=== PATIENT | male | born 1940 | race Caucasian/White ===

== ENCOUNTER 2020-12-17 23:55 | Inpatient (IN) | payer MEDICARE, OTHER ==
[~2020-12-17] VITALS: Ht 175.3 cm; Wt 74.4 kg
[2020-12-18] MEDS ORDERED: IV NORMAL SALINE 1000 ML BAG IV ONE (00:15)
[2020-12-18] MEDS ORDERED: CLOP75TA15 PO (00:18)
[2020-12-18] MEDS ORDERED: BISA5TAB10 PO (00:18)
[2020-12-18] MEDS ORDERED: CETI-90 PO (00:18)
[2020-12-18] MEDS ORDERED: OMEP20CA15 PO (00:18)
[2020-12-18] MEDS ORDERED: GABA-532 PO (00:18)
[2020-12-18] MEDS ORDERED: ASPI81TA31 PO (00:18)
[2020-12-18] MEDS ORDERED: SENN-261 PO (00:18)
[2020-12-18] MEDS ORDERED: vitamin d3 PO (00:18)
[2020-12-18 00:52] LABS: BASOPHILS % (AUTO) 0.3 % (0.0-2.0); EOSINOPHILS # (AUTO) 0.3 K/uL (0.0-0.7); HEMATOCRIT 39.9 % (36.7-47.1); HEMOGLOBIN 13.7 g/dL (12.5-16.3); LYMPHOCYTES # (AUTO) 1.5 K/uL (20.0-40.0); LYMPHOCYTES % (AUTO) 10.4 % (20.5-51.5); MEAN CORPUSCULAR HGB CONC 34 g/dL (32.5-36.3); MEAN CORPUSCULAR VOLUME 87.8 fL (73.0-96.2); MONOCYTES # (AUTO) 1.4 K/uL (2.0-10.0); MONOCYTES % (AUTO) 9.8 % (0.0-11.0); NEUTROPHILS # (AUTO) 11.2 K/uL (1.8-8.9); NEUTROPHILS % (AUTO) 77.5 % (38.5-71.5); PLATELET COUNT (AUTO) 252 K/uL (152-348); RED BLOOD CELL COUNT(AUTO) 4.55 MIL/uL (4.06-5.63); WHITE BLOOD COUNT (AUTO) 14.4 K/uL (3.6-10.2)
[2020-12-18 00:55] LABS: CARBON DIOXIDE 21 mmol/L (21-32); CHLORIDE 99 mmol/L (98-107); CREATININE 1.9 mg/dL (0.6-1.3); POTASSIUM 4.1 mmol/L (3.5-5.1); UREA NITROGEN, BLOOD 62 mg/dL (7-18)
[2020-12-18 00:58] LABS: GLUCOSE 495 mg/dL (74-106)
[2020-12-18 01:01] LABS: ALANINE AMINOTRANSFERASE 28 U/L (16-63); ALKALINE PHOSPHATASE 52 U/L (50-136); ASPARTATE AMINOTRANSFERASE 17 U/L (15-37); BILIRUBIN,DIRECT 0.2 mg/dL (0.0-0.2); BILIRUBIN,TOTAL 0.5 mg/dL (0.2-1.0); LIPASE 141 U/L (73-393); TOTAL PROTEIN, SERUM 7.1 g/dL (6.4-8.2)
[2020-12-18 01:02] LABS: *BILIRUBIN,URIN NEGATIVE (NEGATIVE); *BLOOD, URINE 2+ (NEGATIVE); *COLOR,URINE YELLOW (YELLOW); *KETONES,URINE NEGATIVE (NEGATIVE); *UROBILINOGEN,URINE 0.2 E.U./dl (NORMAL); LEUKOCYTE ESTERASE ,URINE NEGATIVE (NEGATIVE); NITRITE, URINE NEGATIVE (NEGATIVE); PH,URINE 5.5 (5.0-8.0); UGLUCOSE 1+ (NEGATIVE)
[2020-12-18] MEDS ORDERED: INSULIN REGULAR, HUMAN 300 UNIT/3 ML VIAL IV ONE (01:15)
[2020-12-18] MEDS ORDERED: POTASSIUM CHLORIDE 20 MEQ TAB.PRT.SR PO ONE (01:15)
[2020-12-18 01:16] LABS: *CLARITY,URINE HAZY (CLEAR)
[2020-12-18 01:17] LABS: BACTERIA,URINE NONE SEEN /HPF (NONE SEEN); SQUAMOUS EPITHELIAL CELL,UR FEW /HPF (NONE SEEN); URINE AMORPHOUS URATE MODERATE /HPF; WBC,URINE 0-3 /HPF (0-3)
[2020-12-18] MEDS ORDERED: INSULIN REGULAR, HUMAN 300 UNIT/3 ML VIAL ONE (01:20)
[2020-12-18] MEDS ORDERED: POTASSIUM CHLORIDE 20 MEQ TAB.PRT.SR ONE (01:20)
[2020-12-18] MEDS ORDERED: Z GUARD REMEDY PASTE 57 GM TUBE TOP PRN (01:45)
[2020-12-18] MEDS ORDERED: DEXTROSE 50% 50 ML DISP.SYRIN IV PRN ×2 (01:45→18:15)
[2020-12-18] MEDS ORDERED: MAGNESIUM HYDROXIDE 30 ML LIQUID UDC PO PRN (01:45)
[2020-12-18] MEDS ORDERED: ONDANSETRON 4 MG/2 ML VIAL IV PRN (01:45)
[2020-12-18] MEDS ORDERED: HYDROCODONE/APAP 5-325MG TABLET PO PRN (01:45)
[2020-12-18] MEDS ORDERED: BISACODYL 5 MG TABLET.DR PO PRN (01:45)
[2020-12-18] MEDS ORDERED: ACETAMINOPHEN 325 MG TABLET PO PRN (01:45)
[2020-12-18 02:44] VITALS: BP 112/61
[2020-12-18] MEDS: IV NS 1000 ML 1,000 ML IV SCH ×3 (02:53→22:28)
[2020-12-18] MEDS: PANTOPRAZOLE SODIUM 40 MG TABLET.DR PO SCH (05:21)
[2020-12-18] MEDS: BLOOD SUGAR DIAGNOSTIC 1 EACH STRIP VI SCH ×3 (05:21→20:44)
[2020-12-18] MEDS: INSULIN REGULAR, HUMAN 300 UNIT/3 ML VIAL SQ PRN ×3 (05:23→20:52)
[2020-12-18 08:39] VITALS: BP 130/70
[2020-12-18] MEDS: CETIRIZINE HCL 10 MG TABLET PO SCH (09:21)
[2020-12-18] MEDS: CLOPIDOGREL 75 MG TABLET PO SCH (09:21)
[2020-12-18] MEDS: ASPIRIN 81 MG TAB.CHEW PO SCH (09:21)
[2020-12-18] MEDS: CHOLECALCIFEROL 1,000 UNIT TABLET PO SCH (09:21)
[2020-12-18] MEDS: SENNOSIDES 1 TABLET PO SCH ×2 (09:21→16:52)
[2020-12-18] MEDS: GABAPENTIN 100 MG CAPSULE PO SCH ×3 (09:21→16:52)
[2020-12-18 11:30] VITALS: BP 123/66
[2020-12-18 12:16] LABS: BASOPHILS % (AUTO) 0.4 % (0.0-2.0); EOSINOPHILS # (AUTO) 0.3 K/uL (0.0-0.7); EOSINOPHILS % (AUTO) 2.6 % (0.0-7.0); HEMATOCRIT 42.8 % (36.7-47.1); HEMOGLOBIN 14.5 g/dL (12.5-16.3); LYMPHOCYTES # (AUTO) 1.3 K/uL (20.0-40.0); LYMPHOCYTES % (AUTO) 11.4 % (20.5-51.5); MEAN CORPUSCULAR HEMOGLOBIN 29.9 uug (23.8-33.4); MEAN CORPUSCULAR HGB CONC 34 g/dL (32.5-36.3); MEAN CORPUSCULAR VOLUME 88.5 fL (73.0-96.2); MONOCYTES % (AUTO) 8.5 % (0.0-11.0); NEUTROPHILS # (AUTO) 8.6 K/uL (1.8-8.9); NEUTROPHILS % (AUTO) 77.1 % (38.5-71.5); PLATELET COUNT (AUTO) 223 K/uL (152-348); RED BLOOD CELL COUNT(AUTO) 4.84 MIL/uL (4.06-5.63); WHITE BLOOD COUNT (AUTO) 11.2 K/uL (3.6-10.2)
[2020-12-18 12:30] LABS: MAGNESIUM 2.9 mg/dL (1.8-2.4); PHOSPHOROUS 2.8 mg/dL (2.5-4.9)
[2020-12-18 12:39] LABS: CARBON DIOXIDE 23 mmol/L (21-32); CHLORIDE 108 mmol/L (98-107); CREATININE 1.4 mg/dL (0.6-1.3); GLUCOSE 262 mg/dL (74-106); POTASSIUM 4.5 mmol/L (3.5-5.1); UREA NITROGEN, BLOOD 46 mg/dL (7-18)
[2020-12-18 13:23] LABS: *BILIRUBIN,URIN NEGATIVE (NEGATIVE); *BLOOD, URINE 3+ (NEGATIVE); *CLARITY,URINE SLIGHTLY CLOUDY (CLEAR); *COLOR,URINE YELLOW (YELLOW); *KETONES,URINE NEGATIVE (NEGATIVE); *UROBILINOGEN,URINE 0.2 E.U./dl (NORMAL); LEUKOCYTE ESTERASE ,URINE TRACE (NEGATIVE); NITRITE, URINE NEGATIVE (NEGATIVE); PH,URINE 5.5 (5.0-8.0); UGLUCOSE 2+ (NEGATIVE)
[2020-12-18 13:29] LABS: *CREATININE,URINE 59.8 mg/dL (30-125); *URINE TOTAL PROTEIN RANDOM 27.3 mg/dL (<150/24HR)
[2020-12-18 14:51] LABS: SQUAMOUS EPITHELIAL CELL,UR NONE SEEN /HPF (NONE SEEN)
[2020-12-18 14:52] LABS: MUCUS,URINE FEW /LPF (0-FEW)
[2020-12-18 14:53] LABS: BACTERIA,URINE MODERATE /HPF (NONE SEEN)
[2020-12-18 14:57] LABS: URINE AMORPHOUS PHOSPHATES PRESENT /HPF
[2020-12-18] MEDS ORDERED: CEFTRIAXONE 1 G VIAL IM SCH (15:45)
[2020-12-18 16:05] VITALS: BP 144/79
[2020-12-18] MEDS: CEFTRIAXONE 1 G in IV DEXTROSE 5% 50 ML IV SCH (16:51)
[2020-12-18] MEDS: ATORVASTATIN 40 MG TABLET PO SCH (20:38)
[2020-12-18] MEDS: TAMSULOSIN HCL 0.4 MG CAP.SR.24H PO SCH (20:38)
[2020-12-18 20:40] VITALS: BP 127/54
[2020-12-19 00:05] VITALS: BP 140/49
[2020-12-19 04:40] VITALS: BP 136/54
[2020-12-19] MEDS: PANTOPRAZOLE SODIUM 40 MG TABLET.DR PO SCH ×2 (06:03→07:00)
[2020-12-19 06:13] LABS: BASOPHILS # (AUTO) 0.1 K/uL (0.0-8.0); BASOPHILS % (AUTO) 0.6 % (0.0-2.0); EOSINOPHILS # (AUTO) 0.3 K/uL (0.0-0.7); EOSINOPHILS % (AUTO) 3.2 % (0.0-7.0); HEMATOCRIT 36.8 % (36.7-47.1); HEMOGLOBIN 12.4 g/dL (12.5-16.3); LYMPHOCYTES # (AUTO) 1.3 K/uL (20.0-40.0); LYMPHOCYTES % (AUTO) 13.2 % (20.5-51.5); MEAN CORPUSCULAR HEMOGLOBIN 29.7 uug (23.8-33.4); MEAN CORPUSCULAR HGB CONC 34 g/dL (32.5-36.3); MEAN CORPUSCULAR VOLUME 88.4 fL (73.0-96.2); MONOCYTES # (AUTO) 0.8 K/uL (2.0-10.0); NEUTROPHILS # (AUTO) 7.2 K/uL (1.8-8.9); PLATELET COUNT (AUTO) 203 K/uL (152-348); RED BLOOD CELL COUNT(AUTO) 4.16 MIL/uL (4.06-5.63); WHITE BLOOD COUNT (AUTO) 9.5 K/uL (3.6-10.2)
[2020-12-19 06:34] LABS: BILIRUBIN,TOTAL 0.4 mg/dL (0.2-1.0); CREATININE 1.1 mg/dL (0.6-1.3); MAGNESIUM 2.4 mg/dL (1.8-2.4); PHOSPHOROUS 2.7 mg/dL (2.5-4.9); POTASSIUM 4.5 mmol/L (3.5-5.1)
[2020-12-19 06:35] LABS: THYROID STIMULATING HORMONE 1.64 mIU/mL (0.358-3.740)
[2020-12-19] MEDS: BLOOD SUGAR DIAGNOSTIC 1 EACH STRIP VI SCH ×4 (06:51→20:45)
[2020-12-19 07:08] LABS: URIC ACID 5.6 mg/dL (3.5-7.2)
[2020-12-19] MEDS ORDERED: MAGNESIUM CITRATE 296 ML BOTTLE PO ONE (09:00)
[2020-12-19] MEDS: CHOLECALCIFEROL 1,000 UNIT TABLET PO SCH (09:09)
[2020-12-19] MEDS: GABAPENTIN 100 MG CAPSULE PO SCH ×3 (09:10→17:06)
[2020-12-19] MEDS: CLOPIDOGREL 75 MG TABLET PO SCH (09:10)
[2020-12-19] MEDS: CETIRIZINE HCL 10 MG TABLET PO SCH (09:10)
[2020-12-19] MEDS: ASPIRIN 81 MG TAB.CHEW PO SCH (09:10)
[2020-12-19] MEDS: SENNOSIDES 1 TABLET PO SCH ×2 (09:10→17:06)
[2020-12-19] MEDS: INSULIN REGULAR, HUMAN 300 UNIT/3 ML VIAL SQ PRN ×4 (09:11→20:46)
[2020-12-19] MEDS: IV NS 1000 ML 1,000 ML IV SCH ×2 (09:13→17:59)
[2020-12-19 11:56] VITALS: BP 141/52
[2020-12-19 16:00] VITALS: BP 145/53
[2020-12-19] MEDS: CEFTRIAXONE 1 G in IV DEXTROSE 5% 50 ML IV SCH (16:45)
[2020-12-19 20:10] VITALS: BP 158/63
[2020-12-19] MEDS: ATORVASTATIN 40 MG TABLET PO SCH (20:39)
[2020-12-19] MEDS: TAMSULOSIN HCL 0.4 MG CAP.SR.24H PO SCH (20:39)
[2020-12-20 00:21] VITALS: BP 149/62
[2020-12-20] MEDS: IV NS 1000 ML 1,000 ML IV SCH ×2 (04:30→16:58)
[2020-12-20 04:58] VITALS: BP 152/64
[2020-12-20 06:33] LABS: BASOPHILS # (AUTO) 0.1 K/uL (0.0-8.0); BASOPHILS % (AUTO) 0.5 % (0.0-2.0); EOSINOPHILS # (AUTO) 0.2 K/uL (0.0-0.7); EOSINOPHILS % (AUTO) 2.1 % (0.0-7.0); HEMATOCRIT 37.8 % (36.7-47.1); HEMOGLOBIN 12.8 g/dL (12.5-16.3); LYMPHOCYTES # (AUTO) 1.3 K/uL (20.0-40.0); LYMPHOCYTES % (AUTO) 11.1 % (20.5-51.5); MEAN CORPUSCULAR HEMOGLOBIN 29.6 uug (23.8-33.4); MEAN CORPUSCULAR HGB CONC 34 g/dL (32.5-36.3); MEAN CORPUSCULAR VOLUME 87.4 fL (73.0-96.2); MONOCYTES # (AUTO) 0.9 K/uL (2.0-10.0); MONOCYTES % (AUTO) 7.4 % (0.0-11.0); NEUTROPHILS % (AUTO) 78.9 % (38.5-71.5); PLATELET COUNT (AUTO) 254 K/uL (152-348); RED BLOOD CELL COUNT(AUTO) 4.33 MIL/uL (4.06-5.63); WHITE BLOOD COUNT (AUTO) 11.5 K/uL (3.6-10.2)
[2020-12-20] MEDS: BLOOD SUGAR DIAGNOSTIC 1 EACH STRIP VI SCH ×4 (06:35→21:34)
[2020-12-20 06:37] LABS: CARBON DIOXIDE 22 mmol/L (21-32); CHLORIDE 106 mmol/L (98-107); CREATININE 1.5 mg/dL (0.6-1.3); GLUCOSE 239 mg/dL (74-106); POTASSIUM 5.1 mmol/L (3.5-5.1); UREA NITROGEN, BLOOD 27 mg/dL (7-18)
[2020-12-20] MEDS: PANTOPRAZOLE SODIUM 40 MG TABLET.DR PO SCH (06:38)
[2020-12-20 08:00] VITALS: BP 144/78
[2020-12-20] MEDS: INSULIN REGULAR, HUMAN 300 UNIT/3 ML VIAL SQ PRN ×4 (09:20→21:40)
[2020-12-20] MEDS: ASPIRIN 81 MG TAB.CHEW PO SCH (09:20)
[2020-12-20] MEDS: CHOLECALCIFEROL 1,000 UNIT TABLET PO SCH (09:21)
[2020-12-20] MEDS: FINASTERIDE 5 MG TABLET PO SCH (09:21)
[2020-12-20] MEDS: CLOPIDOGREL 75 MG TABLET PO SCH (09:21)
[2020-12-20] MEDS: CETIRIZINE HCL 10 MG TABLET PO SCH (09:21)
[2020-12-20] MEDS: GABAPENTIN 100 MG CAPSULE PO SCH ×3 (09:21→17:00)
[2020-12-20] MEDS: SENNOSIDES 1 TABLET PO SCH ×2 (09:24→17:00)
[2020-12-20 11:39] VITALS: BP 183/72
[2020-12-20 16:16] VITALS: BP 144/66
[2020-12-20] MEDS: CEFTRIAXONE 1 G in IV DEXTROSE 5% 50 ML IV SCH (16:57)
[2020-12-20] MEDS ORDERED: hydrALAZINE HCL 25 MG TABLET PO ONE (18:00)
[2020-12-20 20:37] VITALS: BP 157/64
[2020-12-20] MEDS: ATORVASTATIN 40 MG TABLET PO SCH (21:34)
[2020-12-20] MEDS: TAMSULOSIN HCL 0.4 MG CAP.SR.24H PO SCH (21:34)
[2020-12-21 00:25] VITALS: BP 157/65
[2020-12-21] MEDS: IV NS 1000 ML 1,000 ML IV SCH (00:34)
[2020-12-21 05:24] VITALS: BP 158/72
[2020-12-21] MEDS: PANTOPRAZOLE SODIUM 40 MG TABLET.DR PO SCH (06:14)
[2020-12-21 06:24] LABS: BASOPHILS # (AUTO) 0.1 K/uL (0.0-8.0); BASOPHILS % (AUTO) 1.2 % (0.0-2.0); EOSINOPHILS # (AUTO) 0.4 K/uL (0.0-0.7); EOSINOPHILS % (AUTO) 4.2 % (0.0-7.0); LYMPHOCYTES # (AUTO) 1.6 K/uL (20.0-40.0); LYMPHOCYTES % (AUTO) 18.3 % (20.5-51.5); MEAN CORPUSCULAR HGB CONC 34 g/dL (32.5-36.3); MEAN CORPUSCULAR VOLUME 87.8 fL (73.0-96.2); MONOCYTES # (AUTO) 0.5 K/uL (2.0-10.0); NEUTROPHILS # (AUTO) 6.3 K/uL (1.8-8.9); NEUTROPHILS % (AUTO) 70.3 % (38.5-71.5); PLATELET COUNT (AUTO) 223 K/uL (152-348); RED BLOOD CELL COUNT(AUTO) 3.99 MIL/uL (4.06-5.63)
[2020-12-21 06:32] LABS: CREATININE 1.1 mg/dL (0.6-1.3); POTASSIUM 4.4 mmol/L (3.5-5.1)
[2020-12-21] MEDS: BLOOD SUGAR DIAGNOSTIC 1 EACH STRIP VI SCH ×3 (06:45→16:53)
[2020-12-21 08:00] VITALS: BP 155/68
[2020-12-21] MEDS: INSULIN REGULAR, HUMAN 300 UNIT/3 ML VIAL SQ PRN ×3 (09:40→17:45)
[2020-12-21] MEDS: CLOPIDOGREL 75 MG TABLET PO SCH (09:42)
[2020-12-21] MEDS: ASPIRIN 81 MG TAB.CHEW PO SCH (09:42)
[2020-12-21] MEDS: SENNOSIDES 1 TABLET PO SCH ×2 (09:42→17:37)
[2020-12-21] MEDS: CETIRIZINE HCL 10 MG TABLET PO SCH (09:42)
[2020-12-21] MEDS: GABAPENTIN 100 MG CAPSULE PO SCH ×3 (09:42→17:37)
[2020-12-21] MEDS: CHOLECALCIFEROL 1,000 UNIT TABLET PO SCH (09:42)
[2020-12-21] MEDS: FINASTERIDE 5 MG TABLET PO SCH (09:42)
[2020-12-21 14:00] VITALS: BP 171/65
[2020-12-21] MEDS: CEFTRIAXONE 1 G in IV DEXTROSE 5% 50 ML IV SCH (16:58)
[2020-12-21] MEDS ORDERED: BENAZEPRIL HCL 20 MG TABLET PO ONE (17:00)
[2020-12-21] MEDS ORDERED: AMLODIPINE 5 MG TABLET PO ONE (17:00)
[2020-12-21 17:37] VITALS: BP 174/61
[2020-12-21] MEDS ORDERED: NITR100C11 PO (18:45)
[2020-12-21] MEDS ORDERED: TAMS-3 PO (18:45)
[2020-12-21] MEDS ORDERED: FINA5TAB11 PO (18:45)
[2020-12-21] MEDS ORDERED: ATOR40TA PO (18:45)
[2020-12-22 07:06] LABS: A/G RATIO 0.7 (0.7-1.7); ALBUMIN 2.3 g/dL (2.9-4.4); ALPHA-1-GLOBULIN 0.3 g/dL (0.0-0.4); BETA GLOBULIN 0.8 g/dL (0.7-1.3); GLOBULIN, TOTAL 3.2 g/dL (2.2-3.9); M-SPIKE Not Observed g/dL (Not Observed)
== END 2020-12-21 18:55 | disposition home health service (06) | DRG 725 ==
LOC: ER 12-18 00:11 → MEDSURG3 12-18 02:06 → TELE3 12-18 12:49
PROVIDERS: ADMIT Family Medicine; ATTEND Family Medicine
PROC: 05H533Z Insertion of Infusion Device into Right Subclavian Vein, Percutaneous Approach (ICD-10-PCS; principal; 2020-12-18)
PROC: B546ZZA Ultrasonography of Right Subclavian Vein, Guidance (ICD-10-PCS; 2020-12-18)
DX: N40.1 Benign prostatic hyperplasia with lower urinary tract symptoms (principal); N17.0 Acute kidney failure with tubular necrosis; I21.A1 Myocardial infarction type 2; N13.8 Other obstructive and reflux uropathy; E44.0 Moderate protein-calorie malnutrition; E87.1 Hypo-osmolality and hyponatremia; N39.0 Urinary tract infection, site not specified; K59.00 Constipation, unspecified; E11.65 Type 2 diabetes mellitus with hyperglycemia; B95.2 Enterococcus as the cause of diseases classified elsewhere; I10 Essential (primary) hypertension; E86.1 Hypovolemia; E11.51 Type 2 diabetes mellitus with diabetic peripheral angiopathy without gangrene; K21.9 Gastro-esophageal reflux disease without esophagitis; Z86.73 Personal history of transient ischemic attack (TIA), and cerebral infarction without residual deficits; D72.829 Elevated white blood cell count, unspecified; E88.09 Other disorders of plasma-protein metabolism, not elsewhere classified; Z20.822 Contact with and (suspected) exposure to COVID-19; R10.9 Unspecified abdominal pain; R33.8 Other retention of urine; R93.1 Abnormal findings on diagnostic imaging of heart and coronary circulation; I34.1 Nonrheumatic mitral (valve) prolapse
CPT/HCPCS: 36415; 70030-TC; 71045; 83690; 83735; 83935; 83970; 84100; 84155; 84156; 84165; 84300; 84443; 84550; 85025; 85730; 87077; 87086; 93005; 93307; A4663; C1758; G0378; J0696; J1815; J7030; J7060

== ENCOUNTER 2021-01-19 13:38 | Inpatient (IN) | payer MEDICARE, OTHER ==
[~2021-01-19] VITALS: Ht 167.6 cm; Wt 72.6 kg
[~2021-01-19 13:38] MED LIST: ASPI81TA31 PO; ATOR40TA PO; BISA5TAB10 PO; CETI-90 PO; CLOP75TA15 PO; FINA5TAB11 PO; GABA-532 PO; NITR100C11 PO; OMEP20CA15 PO; SENN-261 PO; TAMS-3 PO; vitamin d3 PO
[2021-01-19] MEDS ORDERED: Z GUARD REMEDY PASTE 57 GM TUBE TOP PRN (15:45)
[2021-01-19] MEDS ORDERED: BISACODYL 5 MG TABLET.DR PO PRN (15:45)
[2021-01-19] MEDS ORDERED: ACETAMINOPHEN 325 MG TABLET PO PRN (15:45)
[2021-01-19] MEDS ORDERED: MAGNESIUM HYDROXIDE 30 ML LIQUID UDC PO PRN (15:45)
[2021-01-19] MEDS ORDERED: ONDANSETRON 4 MG/2 ML VIAL IV PRN (15:45)
[2021-01-19 16:00] VITALS: BP 121/67
[2021-01-19 16:18] LABS: BASOPHILS # (AUTO) 0.1 K/uL (0.0-8.0); BASOPHILS % (AUTO) 0.8 % (0.0-2.0); EOSINOPHILS # (AUTO) 0.3 K/uL (0.0-0.7); EOSINOPHILS % (AUTO) 3.5 % (0.0-7.0); HEMATOCRIT 34.1 % (36.7-47.1); HEMOGLOBIN 11.6 g/dL (12.5-16.3); LYMPHOCYTES # (AUTO) 1.5 K/uL (20.0-40.0); LYMPHOCYTES % (AUTO) 17.6 % (20.5-51.5); MEAN CORPUSCULAR HEMOGLOBIN 28.4 uug (23.8-33.4); MEAN CORPUSCULAR HGB CONC 34 g/dL (32.5-36.3); MEAN CORPUSCULAR VOLUME 83.2 fL (73.0-96.2); MONOCYTES # (AUTO) 0.7 K/uL (2.0-10.0); MONOCYTES % (AUTO) 8.2 % (0.0-11.0); NEUTROPHILS # (AUTO) 5.8 K/uL (1.8-8.9); NEUTROPHILS % (AUTO) 69.9 % (38.5-71.5); PLATELET COUNT (AUTO) 442 K/uL (152-348); WHITE BLOOD COUNT (AUTO) 8.3 K/uL (3.6-10.2)
[2021-01-19 16:26] LABS: BILIRUBIN,TOTAL 0.3 mg/dL (0.2-1.0); CREATININE 1.3 mg/dL (0.6-1.3); MAGNESIUM 1.8 mg/dL (1.8-2.4); PHOSPHOROUS 3.2 mg/dL (2.5-4.9); POTASSIUM 4.7 mmol/L (3.5-5.1); TOTAL PROTEIN, SERUM 7.1 g/dL (6.4-8.2)
--- NOTE | 2021-01-19 16:30 | NUR ---
Patient came to the unit for admission @ 1530 via med trans via [place]. Assisted to bed. Patient is alert and oriented x 3 with periods of forgetfulness, denies of any pain and no s/s of distress. VS taken BP: 121/67 p: 84 on room air saturating at 100% TEMP: 98.4 rr:20. Accucheck is 295 wt is 160.8 lbs. Body assessment done , belongings are checked , home medications were given to the pharmacy. Received a critical lab result of glucose of [address] Salomon with his accucheck result, lab result and wt with no new orders. Marine his daughter came to visit. Call light placed within reach , bed alarm functioning well.
[2021-01-19] MEDS ORDERED: DEXTROSE 50% 50 ML DISP.SYRIN IV PRN (16:45)
[2021-01-19] MEDS: SENNOSIDES 1 TABLET PO SCH (18:03)
[2021-01-19] MEDS: GABAPENTIN 100 MG CAPSULE PO SCH (18:03)
--- NOTE | 2021-01-19 19:20 | NUR ---
In bed, sleeping. No s/s of respiratory distress. Safety measures and fall prevention maintained. Continue care as planned.
[2021-01-19 20:17] VITALS: BP 146/57
[2021-01-19] MEDS: TAMSULOSIN HCL 0.4 MG CAP.SR.24H PO SCH (21:08)
[2021-01-19] MEDS: ATORVASTATIN 40 MG TABLET PO SCH (21:08)
[2021-01-19] MEDS: BLOOD SUGAR DIAGNOSTIC 1 EACH STRIP VI SCH (21:12)
[2021-01-19] MEDS: INSULIN GLARGINE,HUM 300 UNITS/3 ML CARTRIDGE SQ SCH (21:15)
[2021-01-19] MEDS: INSULIN REGULAR, HUMAN 300 UNITS/3 ML VIAL SQ PRN (21:16)
[2021-01-20 04:51] VITALS: BP 126/63
[2021-01-20] MEDS: PANTOPRAZOLE SODIUM 40 MG TABLET.DR PO SCH (06:19)
[2021-01-20] MEDS: BLOOD SUGAR DIAGNOSTIC 1 EACH STRIP VI SCH ×4 (06:21→21:04)
--- NOTE | 2021-01-20 06:38 | NUR ---
Shift End Report: VSS. Slept well. No complaint presented. No s/s of hypo/hyperglycemia. All needs attended and met. No significant event reported all night. Continue current rehab plan of care.
[2021-01-20 06:39] LABS: BASOPHILS % (AUTO) 0.7 % (0.0-2.0); EOSINOPHILS # (AUTO) 0.3 K/uL (0.0-0.7); HEMATOCRIT 32.6 % (36.7-47.1); HEMOGLOBIN 10.9 g/dL (12.5-16.3); LYMPHOCYTES # (AUTO) 1.6 K/uL (20.0-40.0); MEAN CORPUSCULAR HEMOGLOBIN 27.9 uug (23.8-33.4); MEAN CORPUSCULAR HGB CONC 34 g/dL (32.5-36.3); MEAN CORPUSCULAR VOLUME 83.2 fL (73.0-96.2); MONOCYTES # (AUTO) 0.8 K/uL (2.0-10.0); MONOCYTES % (AUTO) 10.2 % (0.0-11.0); NEUTROPHILS # (AUTO) 4.6 K/uL (1.8-8.9); NEUTROPHILS % (AUTO) 63.1 % (38.5-71.5); PLATELET COUNT (AUTO) 427 K/uL (152-348); RED BLOOD CELL COUNT(AUTO) 3.92 MIL/uL (4.06-5.63); WHITE BLOOD COUNT (AUTO) 7.4 K/uL (3.6-10.2)
[2021-01-20 07:26] LABS: CREATININE 1.2 mg/dL (0.6-1.3)
[2021-01-20 07:48] VITALS: BP 136/67
[2021-01-20] MEDS: INSULIN REGULAR, HUMAN 300 UNIT/3 ML VIAL SQ PRN ×3 (08:08→16:56)
[2021-01-20] MEDS: FINASTERIDE 5 MG TABLET PO SCH (08:09)
[2021-01-20] MEDS: CLOPIDOGREL 75 MG TABLET PO SCH (08:09)
[2021-01-20] MEDS: SENNOSIDES 1 TABLET PO SCH ×2 (08:09→17:00)
[2021-01-20] MEDS: CHOLECALCIFEROL 1,000 UNIT TABLET PO SCH (08:09)
[2021-01-20] MEDS: GABAPENTIN 100 MG CAPSULE PO SCH ×3 (08:09→16:48)
[2021-01-20] MEDS: ASPIRIN 81 MG TAB.CHEW PO SCH (08:09)
[2021-01-20] MEDS: Z GUARD REMEDY PASTE 57 GM TUBE TOP PRN (08:10)
[2021-01-20] MEDS ORDERED: VITAMIN D3 1000 UNIT PO SCH (09:00)
[2021-01-20] MEDS ORDERED: Medication Not On Formulary EA (Omeprazole 20 MG) PO SCH (09:00)
[2021-01-20] MEDS ORDERED: CHOL400C8 PO (12:10)
[2021-01-20] MEDS ORDERED: ESCI5TAB PO (12:17)
--- NOTE | 2021-01-20 13:45 | NUR ---
WOUND CARE CONSULT: PT PRESENTS WITH RT LATERAL ANKLE SCARRING/DISCOLORATION, CALLUSES TO PLANTAR FEET AND RASH TO GROIN, PERINEUM AND PENIS, PRESENT ON ADMISSION. RECOMMENDATIONS MADE FOR SKIN PROTECTION. DISCUSSED WITH NURSING STAFF. PT IS INCONTINENT. IN AGREEMENT WITH PLAN OF CARE. Addendum: 01/20/21 at 1349 by ZOILA HUSSEIN RN Amended: Links added. Addendum: 01/20/21 at 1407 by ZOILA HUSSEIN RN PT ALSO NOTED TO HAVE DRY ABRASION/DISCOLORATION TO RT SIDE OF BACK, PRESENT ON ADMISSION.
[2021-01-20] MEDS: CLOTRIMAZOLE 1% CREAM 30 GM TUBE TOP SCH ×2 (14:03→21:07)
--- NOTE | 2021-01-20 14:54 | NUR ---
CRUZITO NOTE: rehabilitation caseworker met with patient and at bedside was patient's daughter as well, Moriah ([phone]). Patient presents alert and oriented x4. Patient has fair insight into his presenting problems. Patient expresses hopelessness. SW provided a lot of encouragement and motivational interviewing. Patient lives at home with his and receives home health services. Patient's family is very involved and supportive. Prior to admission patient was independently walking and conducting his own ADLs. Patient requires a lot of encouragement and motivation to work towards his goals in ARU. Patient states he has a loss of appetite. Patient recently started on anti-depressants. rehabilitation caseworker will continue to remain available to patient and provide ongoing supportive counseling and assess for any psychosocial needs. rehabilitation caseworker will encourage patient to comply with ARU goals of care.
[2021-01-20 15:15] VITALS: BP 143/62
[2021-01-20 16:54] LABS: *BILIRUBIN,URIN NEGATIVE (NEGATIVE); *BLOOD, URINE 2+ (NEGATIVE); *CLARITY,URINE CLOUDY (CLEAR); *COLOR,URINE YELLOW (YELLOW); *KETONES,URINE TRACE (NEGATIVE); LEUKOCYTE ESTERASE ,URINE 3+ (NEGATIVE); NITRITE, URINE POSITIVE (NEGATIVE); UGLUCOSE TRACE (NEGATIVE)
[2021-01-20] MEDS ORDERED: CLOTRIMAZOLE 1% CREAM 30 GM TUBE TOP SCH (17:00)
--- NOTE | 2021-01-20 18:29 | NUR ---
End of shift note: Pt in bed, no acute distress, all needs met at this time. VSS. Pt denies pain/discomfort at this time. Due medications given per order, no a/r noted. Wound care administered per order with wound care nurse at bedside, photos taken. Heels offloaded. Urine noted with milky appearance and odor, Dr. Salomon made aware, new orders in place. UA results back, Dr. Salomon made aware with new order. Pt had BMs today, Senleninot held, Dr. Salomon aware. Pt stated wanting to "sleep", poor motivation for ARU therapy noted, encouraged pt. Dr. Salomon aware. Pt's daughter Moriah at bedside this afternoon, nursing care discussed with pt and family. Safety measures, fall precautions, aspiration precautions maintained. Call light and belongings within reach. Will endorse care to evening or night nurse supervisor nurse.
[2021-01-20 19:59] VITALS: BP 142/67
[2021-01-20] MEDS: TAMSULOSIN HCL 0.4 MG CAP.SR.24H PO SCH (20:55)
[2021-01-20] MEDS: NITROFURANTOIN/NITROFURAN MAC 100 MG CAPSULE PO SCH (20:55)
[2021-01-20] MEDS: ATORVASTATIN 40 MG TABLET PO SCH (20:55)
[2021-01-20] MEDS: INSULIN REGULAR, HUMAN 300 UNITS/3 ML VIAL SQ PRN (21:03)
[2021-01-20] MEDS: INSULIN GLARGINE,HUM 300 UNITS/3 ML CARTRIDGE SQ SCH (21:04)
[2021-01-20 22:22] LABS: BACTERIA,URINE MANY /HPF (NONE SEEN); RBC,URINE TNTC /HPF (0-3); SQUAMOUS EPITHELIAL CELL,UR FEW /HPF (NONE SEEN); WBC,URINE TNTC /HPF (0-3)
[2021-01-21 05:01] VITALS: BP 133/59
[2021-01-21] MEDS: BLOOD SUGAR DIAGNOSTIC 1 EACH STRIP VI SCH ×4 (06:19→21:00)
[2021-01-21] MEDS: PANTOPRAZOLE SODIUM 40 MG TABLET.DR PO SCH (06:19)
--- NOTE | 2021-01-21 06:40 | NUR ---
End of shift Report Patient rested well in between care; incontinence and AM care done; acchucheck as charted; VSS; continue to monitor; continue plan of care.
[2021-01-21 08:00] VITALS: BP 128/70
[2021-01-21] MEDS: INSULIN REGULAR, HUMAN 300 UNIT/3 ML VIAL SQ PRN ×3 (08:05→19:41)
[2021-01-21] MEDS: NITROFURANTOIN/NITROFURAN MAC 100 MG CAPSULE PO SCH ×2 (08:06→21:10)
[2021-01-21] MEDS: CHOLECALCIFEROL 1,000 UNIT TABLET PO SCH (08:06)
[2021-01-21] MEDS: GABAPENTIN 100 MG CAPSULE PO SCH ×3 (08:07→17:37)
[2021-01-21] MEDS: ASPIRIN 81 MG TAB.CHEW PO SCH (08:07)
[2021-01-21] MEDS: CLOPIDOGREL 75 MG TABLET PO SCH (08:07)
[2021-01-21] MEDS: FINASTERIDE 5 MG TABLET PO SCH (08:07)
[2021-01-21] MEDS: SENNOSIDES 1 TABLET PO SCH ×2 (08:08→17:37)
[2021-01-21] MEDS: CLOTRIMAZOLE 1% CREAM 30 GM TUBE TOP SCH ×2 (08:09→17:39)
[2021-01-21] MEDS: Z GUARD REMEDY PASTE 57 GM TUBE TOP PRN (08:21)
[2021-01-21] MEDS ORDERED: ESCITALOPRAM OXALATE 10 MG TABLET PO SCH (09:00)
--- NOTE | 2021-01-21 10:56 | NUR ---
Dr. Salomon at bedside, examined pt, full report given. New orders in place, will carry out and continue to monitor.
--- NOTE | 2021-01-21 13:06 | NUR ---
CRUZITO NOTE: CRUZITO requested Psychiatry Consultation for the patient by Dr. Calixto. CRUZITO spoke with charge nurse, Beatris ELLISON who will place the order for psych consult.
--- NOTE | 2021-01-21 14:31 | NUR ---
INTERDISCIPLINARY TEAM CONFERENCE
--- NOTE | 2021-01-21 15:00 | NUR ---
During her stay in she don't want to be disturbed, closed her room door, and refused blood draw. Talked to Dr. Naylor of her health concerned. On the discharge process, pt keep asking for time to stay longer given different reason, stated that she would like to process her [employer], would like to arranged her ride. She's focus on health concerned, stated that she would have episode if she would be hungry, she requested for tuna sandwich, and apple juice and was promptly provided. pt discharged to home with all belongings. All paper works signed and in chart with copy given to her. Medications list was given. All medication given as ordered. Pt left in stable condition. IV name band removed. Discharge and teaching completed
--- NOTE | 2021-01-21 16:00 | NUR ---
Pt in bed, all needs met at this time. No pt reports of pain, no acute distress. Due medications given per order with much encouragement, no a/r noted. Wound care administered per order. Heels offloaded. Pt kept clean and dry. Pt noted with poor motivation for activities, taking medications, and PO intake. Encouraged and reassured pt, Dr. Salomon aware. Dr. Calixto examined pt at bedside, examined pt, new orders in place. Dr. Salomon and pt's daughters aware, in agreement. Safety measures, fall precautions, aspiration precautions maintained. Call light and belongings within reach. Will endorse for continuity of care.
[2021-01-21 16:26] VITALS: BP 124/65
[2021-01-21] MEDS: NUTRISOURCE FIBER 4 GM PACKET PO SCH (17:39)
[2021-01-21] MEDS: GLUCERNA SHAKE VANILLA 237 ML CAN PO SCH (17:39)
[2021-01-21 20:00] VITALS: BP 157/76
[2021-01-21] MEDS: INSULIN REGULAR, HUMAN 300 UNITS/3 ML VIAL SQ PRN (21:04)
[2021-01-21] MEDS: INSULIN GLARGINE,HUM 300 UNITS/3 ML CARTRIDGE SQ SCH (21:07)
[2021-01-21] MEDS: ATORVASTATIN 40 MG TABLET PO SCH (21:10)
[2021-01-21] MEDS: TAMSULOSIN HCL 0.4 MG CAP.SR.24H PO SCH (21:10)
--- NOTE | 2021-01-21 21:50 | NUR ---
Received patient alert oriented x 2 resting in bed at room air saturating 100% no c/o pain or discomfort. Patient able to let his needs known staff, clean and dry, all due medication administered as ordered, encourage choice of fluids and snack, Glucerna. all due care given. Accu-check done, insulin given as per Sliding scale. no s/s of hypo glycemia noted. needs anticipated. call light with i n reach. will monitor.
[2021-01-22 04:00] VITALS: BP 118/67
--- NOTE | 2021-01-22 04:14 | NUR ---
Patient sleeping intermittently, patient noted moaning, with distended and tender abdomen to touch voided times 2, but c/o uncomfortable did not completely empty his bladder, done bladder scan noted 563ml to 700 ml PVR. Called [facility] with order to do IN and Out Catheter. Dr. Salomon made aware.
[2021-01-22] MEDS: HYDROCODONE/APAP 5-325MG TABLET PO PRN (04:39)
--- NOTE | 2021-01-22 04:42 | NUR ---
Pain Medication administered as ordered Prn [place] 5-325mg po. kept clean and dry.
--- NOTE | 2021-01-22 05:30 | NUR ---
patient alert oriented times 2 resting in bed, Pain medication effective, discussed with patient received order insert in and out catheter if more than 300 cc PVR, patient voided again, done PVR noted now 450 ml , done in and out catheter with 450 ml out put. Patient stated "feels good, no distended stomach. no discomfort. endorsed to oncoming shift accordingly. kept clean and dry needs anticipated.Call light with in reach.
[2021-01-22 06:37] LABS: BASOPHILS % (AUTO) 0.4 % (0.0-2.0); EOSINOPHILS # (AUTO) 0.2 K/uL (0.0-0.7); EOSINOPHILS % (AUTO) 1.5 % (0.0-7.0); HEMATOCRIT 31.7 % (36.7-47.1); LYMPHOCYTES # (AUTO) 1.2 K/uL (20.0-40.0); LYMPHOCYTES % (AUTO) 11.9 % (20.5-51.5); MEAN CORPUSCULAR HEMOGLOBIN 28.5 uug (23.8-33.4); MEAN CORPUSCULAR HGB CONC 35 g/dL (32.5-36.3); MEAN CORPUSCULAR VOLUME 81.7 fL (73.0-96.2); MONOCYTES # (AUTO) 0.7 K/uL (2.0-10.0); MONOCYTES % (AUTO) 6.5 % (0.0-11.0); NEUTROPHILS # (AUTO) 8.3 K/uL (1.8-8.9); NEUTROPHILS % (AUTO) 79.7 % (38.5-71.5); PLATELET COUNT (AUTO) 428 K/uL (152-348); RED BLOOD CELL COUNT(AUTO) 3.88 MIL/uL (4.06-5.63); WHITE BLOOD COUNT (AUTO) 10.4 K/uL (3.6-10.2)
[2021-01-22] MEDS: PANTOPRAZOLE SODIUM 40 MG TABLET.DR PO SCH (06:37)
[2021-01-22] MEDS: BLOOD SUGAR DIAGNOSTIC 1 EACH STRIP VI SCH ×4 (06:37→20:31)
--- NOTE | 2021-01-22 07:20 | NUR ---
received morning report, patient awake, no signs of pain or discomfort noted at this time, call light within reach. will continue to monitor.
[2021-01-22] MEDS: INSULIN REGULAR, HUMAN 300 UNIT/3 ML VIAL SQ PRN ×3 (08:00→16:37)
[2021-01-22 08:13] VITALS: BP 121/70
[2021-01-22] MEDS ORDERED: ESCITALOPRAM OXALATE 10 MG TABLET PO SCH (09:00)
[2021-01-22] MEDS: VENLAFAXINE XR 37.5 MG CAP.SR.24H PO SCH (09:57)
[2021-01-22] MEDS: FINASTERIDE 5 MG TABLET PO SCH (09:57)
[2021-01-22] MEDS: NITROFURANTOIN/NITROFURAN MAC 100 MG CAPSULE PO SCH ×2 (09:57→20:25)
[2021-01-22] MEDS: ASPIRIN 81 MG TAB.CHEW PO SCH (09:57)
[2021-01-22] MEDS: SENNOSIDES 1 TABLET PO SCH ×2 (09:57→16:38)
[2021-01-22] MEDS: CLOPIDOGREL 75 MG TABLET PO SCH (09:57)
[2021-01-22] MEDS: CHOLECALCIFEROL 1,000 UNIT TABLET PO SCH (09:57)
[2021-01-22] MEDS: GABAPENTIN 100 MG CAPSULE PO SCH ×3 (09:58→16:38)
[2021-01-22] MEDS: CLOTRIMAZOLE 1% CREAM 30 GM TUBE TOP SCH ×2 (09:58→16:40)
[2021-01-22] MEDS: NUTRISOURCE FIBER 4 GM PACKET PO SCH ×2 (10:00→16:39)
[2021-01-22] MEDS: GLUCERNA SHAKE VANILLA 237 ML CAN PO SCH ×2 (10:01→16:39)
--- NOTE | 2021-01-22 11:47 | NUR ---
INDIVIDUALIZED PLAN OF CARE
[2021-01-22 15:19] VITALS: BP 140/68
--- NOTE | 2021-01-22 18:41 | NUR ---
patient awake in bed, no complains of any pain or discomfort at this time, call light within reach. family at bedside. will report to oncoming shift.
--- NOTE | 2021-01-22 19:00 | NUR ---
PATIENT ALERT SPEAK MEXICAN/[place]IL[place] BUT UNDERSTAND IVORIAN. PATIENT DENIES PAIN AT THIS TIME, KEPT CLEAN AND DRY, ENCOURAGED TO TURN AND REPOSITION SELF, CALL LIGHT WITHIN REACH. MONITOR PATIENT IF HE VOIDING ENOUGH. CONT TO MONITOR.
[2021-01-22 20:00] VITALS: BP 121/60
[2021-01-22] MEDS: TAMSULOSIN HCL 0.4 MG CAP.SR.24H PO SCH (20:25)
[2021-01-22] MEDS: ATORVASTATIN 40 MG TABLET PO SCH (20:25)
[2021-01-22] MEDS: INSULIN GLARGINE,HUM 300 UNITS/3 ML CARTRIDGE SQ SCH (20:54)
[2021-01-22] MEDS: INSULIN REGULAR, HUMAN 300 UNITS/3 ML VIAL SQ PRN (20:57)
--- NOTE | 2021-01-23 04:09 | NUR ---
PATIENT DID NOT VOID FOR 8 HRS, ABDOMEN HARD TO TOUCH, BLADDER SCAN DONE WITH 699CC OF URINE. PATIENT HAS ORDER FOR I&O IF THERE URINE RESIDUAL OF 300CC OR MORE, DID STRAIGHT CATH WITH 700CC URINE TEA COLOR.
[2021-01-23 04:41] VITALS: BP 127/79
[2021-01-23] MEDS: PANTOPRAZOLE SODIUM 40 MG TABLET.DR PO SCH (06:10)
[2021-01-23] MEDS: BLOOD SUGAR DIAGNOSTIC 1 EACH STRIP VI SCH ×4 (06:10→20:14)
--- NOTE | 2021-01-23 06:14 | NUR ---
Patient alert verbally responsive, denies pain at this time, no sob no chest pain, had bowel movement, cont to monitor.
[2021-01-23 08:00] VITALS: BP 129/70
[2021-01-23] MEDS: ASPIRIN 81 MG TAB.CHEW PO SCH (08:01)
[2021-01-23] MEDS: VENLAFAXINE XR 37.5 MG CAP.SR.24H PO SCH (08:01)
[2021-01-23] MEDS: GABAPENTIN 100 MG CAPSULE PO SCH ×3 (08:02→16:56)
[2021-01-23] MEDS: NITROFURANTOIN/NITROFURAN MAC 100 MG CAPSULE PO SCH (08:02)
[2021-01-23] MEDS: FINASTERIDE 5 MG TABLET PO SCH (08:02)
[2021-01-23] MEDS: CLOPIDOGREL 75 MG TABLET PO SCH (08:02)
[2021-01-23] MEDS: NUTRISOURCE FIBER 4 GM PACKET PO SCH ×2 (08:02→16:57)
[2021-01-23] MEDS: CHOLECALCIFEROL 1,000 UNIT TABLET PO SCH (08:02)
[2021-01-23] MEDS: SENNOSIDES 1 TABLET PO SCH ×2 (08:02→16:56)
[2021-01-23] MEDS: GLUCERNA SHAKE VANILLA 237 ML CAN PO SCH ×2 (08:03→16:57)
[2021-01-23] MEDS: CLOTRIMAZOLE 1% CREAM 30 GM TUBE TOP SCH ×2 (08:03→16:58)
[2021-01-23] MEDS: INSULIN REGULAR, HUMAN 300 UNIT/3 ML VIAL SQ PRN ×2 (12:31→16:47)
[2021-01-23] MEDS: MEGESTROL ACETATE 400 MG/10 ML LIQUID UDC PO SCH (12:32)
--- NOTE | 2021-01-23 14:38 | NUR ---
patient is alert, awake, no sob, resp even nonlabored,skin warm a and dry to touch, patient noted with poor po intake, ate 0% breakfast, and few crakers and few peanuts, drank 8oz of juice for lunch after convincing and assisting with meal, offered different choices, patient kept saying he does not want to eat and wants to , however no plan, patient is calm and denied any pain, psychiatrist dr Calixto is aware of it. Continue to monitor and convince to eat and drink.
[2021-01-23 16:00] VITALS: BP 113/60
--- NOTE | 2021-01-23 16:22 | NUR ---
Ssun0ziiw cath patient with output of 800cc, Tried IV line, unable to get the access, called trim crew supervisor for midline placement as ordered by MD Salomon
[2021-01-23 16:28] VITALS: BP 118/69
[2021-01-23] MEDS ORDERED: MEROPENEM 1 G in IV NORMAL SALINE 100 ML IV SCH (17:00)
[2021-01-23] MEDS: IV NORMAL SALINE 250 ML IV PRN (18:05)
[2021-01-23] MEDS: MEROPENEM 1 G in IV NORMAL SALINE 100 ML IV SCH (20:10)
[2021-01-23] MEDS: TAMSULOSIN HCL 0.4 MG CAP.SR.24H PO SCH (20:11)
[2021-01-23] MEDS: ATORVASTATIN 40 MG TABLET PO SCH (20:11)
[2021-01-23] MEDS: INSULIN GLARGINE,HUM 300 UNITS/3 ML CARTRIDGE SQ SCH (20:17)
[2021-01-23 20:18] VITALS: BP 134/61
[2021-01-23] MEDS: INSULIN REGULAR, HUMAN 300 UNITS/3 ML VIAL SQ PRN (20:20)
--- NOTE | 2021-01-23 21:39 | NUR ---
Received patient alert oriented x 3, Turkish speaking, able to understand South African. VSS, no acute distress noted. Denies any pain or discomfort. Patient able to make needs known. All due medication administered as ordered, encourage choice of fluids and snack. SAVANNA midline established at bedside. Infused Merrem as ordered, no adverse reactions noted, tolerated well. Accu-check done, 281 covered per sliding scale. no s/s of hypo glycemia noted. Needs attended too. call light within reach. Safety measures maintained. will continue to monitor.
--- NOTE | 2021-01-23 23:00 | NUR ---
Patient denies urgency to urinate. Denies any pain. Bladder scan completed 220 cc noted. Will continue to monitor.
--- NOTE | 2021-01-24 04:00 | NUR ---
Patient has no void throughout the night. No distress noted. Bladder scan completed 650cc . Straight cath completed with 800ccc dark april colored urine out. Tolerated well. Pt kept clean, dry and comfortable. Needs attended too. Resting in bed. Will continue plan of care.
[2021-01-24] MEDS: MEROPENEM 1 G in IV NORMAL SALINE 100 ML IV SCH (04:31)
[2021-01-24 06:21] LABS: BASOPHILS # (AUTO) 0.1 K/uL (0.0-8.0); BASOPHILS % (AUTO) 1.1 % (0.0-2.0); EOSINOPHILS # (AUTO) 0.8 K/uL (0.0-0.7); EOSINOPHILS % (AUTO) 9.4 % (0.0-7.0); HEMOGLOBIN 8.8 g/dL (12.5-16.3); LYMPHOCYTES # (AUTO) 1.5 K/uL (20.0-40.0); MEAN CORPUSCULAR HEMOGLOBIN 28.4 uug (23.8-33.4); MEAN CORPUSCULAR HGB CONC 31 g/dL (32.5-36.3); MEAN CORPUSCULAR VOLUME 90.5 fL (73.0-96.2); MONOCYTES # (AUTO) 0.7 K/uL (2.0-10.0); MONOCYTES % (AUTO) 8.4 % (0.0-11.0); NEUTROPHILS # (AUTO) 5.5 K/uL (1.8-8.9); NEUTROPHILS % (AUTO) 64.1 % (38.5-71.5); PLATELET COUNT (AUTO) 334 K/uL (152-348); WHITE BLOOD COUNT (AUTO) 8.6 K/uL (3.6-10.2)
[2021-01-24] MEDS: PANTOPRAZOLE SODIUM 40 MG TABLET.DR PO SCH (06:31)
[2021-01-24] MEDS: BLOOD SUGAR DIAGNOSTIC 1 EACH STRIP VI SCH ×4 (06:34→21:01)
[2021-01-24 06:54] LABS: CARBON DIOXIDE 27 mmol/L (21-32); CHLORIDE 109 mmol/L (98-107); CREATININE 4.7 mg/dL (0.6-1.3); GLUCOSE 121 mg/dL (74-106); POTASSIUM 4.6 mmol/L (3.5-5.1)
[2021-01-24 07:36] LABS: UREA NITROGEN, BLOOD 97 mg/dL (7-18)
[2021-01-24 07:38] VITALS: BP 126/55
--- NOTE | 2021-01-24 07:47 | NUR ---
critical lab BUN [address] gongora with order to do renal US, order placed.
[2021-01-24] MEDS: ASPIRIN 81 MG TAB.CHEW PO SCH (08:35)
[2021-01-24] MEDS: SENNOSIDES 1 TABLET PO SCH ×2 (08:36→16:07)
[2021-01-24] MEDS: MEGESTROL ACETATE 400 MG/10 ML LIQUID UDC PO SCH (08:36)
[2021-01-24] MEDS: GLUCERNA SHAKE VANILLA 237 ML CAN PO SCH ×2 (08:36→16:13)
[2021-01-24] MEDS: CLOPIDOGREL 75 MG TABLET PO SCH (08:36)
[2021-01-24] MEDS: VENLAFAXINE XR 75 MG TAB.ER.24H PO SCH (08:36)
[2021-01-24] MEDS: GABAPENTIN 100 MG CAPSULE PO SCH ×3 (08:36→16:07)
[2021-01-24] MEDS: FINASTERIDE 5 MG TABLET PO SCH (08:36)
[2021-01-24] MEDS: CHOLECALCIFEROL 1,000 UNIT TABLET PO SCH (08:36)
[2021-01-24] MEDS: NUTRISOURCE FIBER 4 GM PACKET PO SCH ×2 (08:37→16:13)
[2021-01-24] MEDS: CLOTRIMAZOLE 1% CREAM 30 GM TUBE TOP SCH ×2 (08:38→16:13)
[2021-01-24] MEDS ORDERED: VENLAFAXINE XR 37.5 MG CAP.SR.24H PO SCH (09:00)
[2021-01-24 11:39] VITALS: BP 117/54
[2021-01-24] MEDS: INSULIN REGULAR, HUMAN 300 UNIT/3 ML VIAL SQ PRN ×2 (11:46→16:12)
--- NOTE | 2021-01-24 11:46 | NUR ---
bladder scan performed result 550ml, straight cath performed with out put of 600ml, dark plus purulent and sediments noted.
[2021-01-24] MEDS: MEROPENEM 500 MG in IV NORMAL SALINE 50 ML IV SCH (15:16)
[2021-01-24 16:00] VITALS: BP 127/63
[2021-01-24 17:50] LABS: CREATININE 1.3 mg/dL (0.6-1.3); POTASSIUM 4.3 mmol/L (3.5-5.1)
--- NOTE | 2021-01-24 18:43 | NUR ---
patient is alert, oriented x4, no sob, resp even nonlabored, skin warm and dry to touch, no acute distress noted, patient ate better and looked with good spirit today, ate better lunch and dinner 75%, vincent catheter inserted and irrigate the vincent as ordered, urine is cloudy, purulent, dark color, with malodorous, however no fever, no chills, no nausea noted during shift, no skin issues noted, heels floated on two pillows, kept clean and dry, on magace for poor appetite, continue to monitor.
--- NOTE | 2021-01-24 19:30 | NUR ---
Patient report received from day shift. Awake, alert and oriented x 4. Patient seen resting in bed. Patient is comfortable on room air. No reports of shortness of breath. Patient has a vincent, patent and draining. Irrigation q6h. Patient has a right upper arm midline, patent. No reports of pain. Safety and fall precautions in place. Bed in low and locked position. Call light within reach.
[2021-01-24 20:40] VITALS: BP 145/79
[2021-01-24] MEDS: TAMSULOSIN HCL 0.4 MG CAP.SR.24H PO SCH (20:47)
[2021-01-24] MEDS: ATORVASTATIN 40 MG TABLET PO SCH (20:47)
[2021-01-24] MEDS: INSULIN GLARGINE,HUM 300 UNITS/3 ML CARTRIDGE SQ SCH (20:49)
[2021-01-24] MEDS: INSULIN REGULAR, HUMAN 300 UNITS/3 ML VIAL SQ PRN (21:03)
[2021-01-25] MEDS: MEROPENEM 500 MG in IV NORMAL SALINE 50 ML IV SCH (03:36)
[2021-01-25] MEDS: IV NORMAL SALINE 250 ML IV PRN (03:42)
[2021-01-25 04:00] VITALS: BP 158/75
[2021-01-25] MEDS: PANTOPRAZOLE SODIUM 40 MG TABLET.DR PO SCH (06:31)
[2021-01-25 06:49] LABS: BASOPHILS # (AUTO) 0.1 K/uL (0.0-8.0); BASOPHILS % (AUTO) 0.8 % (0.0-2.0); EOSINOPHILS # (AUTO) 0.4 K/uL (0.0-0.7); EOSINOPHILS % (AUTO) 5.1 % (0.0-7.0); LYMPHOCYTES # (AUTO) 1.7 K/uL (20.0-40.0); LYMPHOCYTES % (AUTO) 19.8 % (20.5-51.5); MEAN CORPUSCULAR HEMOGLOBIN 27.9 uug (23.8-33.4); MEAN CORPUSCULAR HGB CONC 34 g/dL (32.5-36.3); MONOCYTES # (AUTO) 0.6 K/uL (2.0-10.0); MONOCYTES % (AUTO) 7.2 % (0.0-11.0); NEUTROPHILS # (AUTO) 5.7 K/uL (1.8-8.9); NEUTROPHILS % (AUTO) 67.1 % (38.5-71.5); RED BLOOD CELL COUNT(AUTO) 3.83 MIL/uL (4.06-5.63); WHITE BLOOD COUNT (AUTO) 8.6 K/uL (3.6-10.2)
[2021-01-25] MEDS: BLOOD SUGAR DIAGNOSTIC 1 EACH STRIP VI SCH ×4 (06:51→20:57)
[2021-01-25 06:59] LABS: BILIRUBIN,TOTAL 0.2 mg/dL (0.2-1.0); PHOSPHOROUS 2.8 mg/dL (2.5-4.9); POTASSIUM 3.9 mmol/L (3.5-5.1); TOTAL PROTEIN, SERUM 6.2 g/dL (6.4-8.2)
--- NOTE | 2021-01-25 07:03 | NUR ---
Patient in bed resting. Slept well. Alert and oriented x 4. Patient is comfortable on room air. No reports of shortness of breath. Patient has a vincent, patent and draining. Urine is cloudy, dark, and purulent. Catheter irrigated every 6 hours. No reports of pain. Medications given as ordered. Last accu check 161, will endorse to oncoming shift.
[2021-01-25 07:25] LABS: HEMOGLOBIN 10.7 g/dL (12.5-16.3)
[2021-01-25 07:26] LABS: HEMATOCRIT 31.4 % (36.7-47.1); PLATELET COUNT (AUTO) 457 K/uL (152-348)
[2021-01-25] MEDS: INSULIN REGULAR, HUMAN 300 UNIT/3 ML VIAL SQ PRN ×3 (08:45→17:21)
[2021-01-25] MEDS: ASPIRIN 81 MG TAB.CHEW PO SCH (08:48)
[2021-01-25] MEDS: FINASTERIDE 5 MG TABLET PO SCH (08:48)
[2021-01-25] MEDS: CHOLECALCIFEROL 1,000 UNIT TABLET PO SCH (08:48)
[2021-01-25] MEDS: GABAPENTIN 100 MG CAPSULE PO SCH ×3 (08:48→16:48)
[2021-01-25] MEDS: VENLAFAXINE XR 75 MG TAB.ER.24H PO SCH (08:49)
[2021-01-25] MEDS: CLOPIDOGREL 75 MG TABLET PO SCH (08:49)
[2021-01-25] MEDS: SENNOSIDES 1 TABLET PO SCH ×2 (08:49→16:48)
[2021-01-25] MEDS: NUTRISOURCE FIBER 4 GM PACKET PO SCH ×2 (08:50→17:24)
[2021-01-25] MEDS: GLUCERNA SHAKE VANILLA 237 ML CAN PO SCH ×2 (08:50→17:23)
[2021-01-25] MEDS: MEGESTROL ACETATE 400 MG/10 ML LIQUID UDC PO SCH (08:50)
[2021-01-25] MEDS: CLOTRIMAZOLE 1% CREAM 30 GM TUBE TOP SCH ×2 (08:51→16:48)
--- NOTE | 2021-01-25 10:00 | NUR ---
Patient is alert and oriented x 3 with periods of forgetfulness. Cooperative upon assessment. All due meds given as ordered. Seen by Dr. Salomon and notified him regarding patient's coughing while drinking his cranberry juice and doctor stated " It is ok and that's his way of clearing his throat" Wound treatment done as ordered . Right upper arm midline intact. Patient in room air saturating at 99%. On vincent catheter with bloody output and doctor Umm made aware with an order to flush every 6 hours of 100 cc NS. Assisted to the wheelchair at 1045 for his therapy off the unit. Will continue to monitor.
[2021-01-25] MEDS: MEROPENEM 1 G in IV NORMAL SALINE 100 ML IV SCH ×2 (11:35→20:53)
--- NOTE | 2021-01-25 12:00 | NUR ---
Nur catheter irrigation done patient tolerated well. Denies of any pain at this time .
[2021-01-25 16:00] VITALS: BP 114/59
--- NOTE | 2021-01-25 17:30 | NUR ---
Nur catheter irrigation done with no clots noted and no resistance noted. Right upper arm midline intact. Turning and repositioning rendered every 2 hours.
[2021-01-25 20:31] VITALS: BP 144/62
[2021-01-25] MEDS: ATORVASTATIN 40 MG TABLET PO SCH (20:53)
[2021-01-25] MEDS: TAMSULOSIN HCL 0.4 MG CAP.SR.24H PO SCH (20:53)
[2021-01-25] MEDS: INSULIN REGULAR, HUMAN 300 UNITS/3 ML VIAL SQ PRN (21:01)
[2021-01-25] MEDS: INSULIN GLARGINE,HUM 300 UNITS/3 ML CARTRIDGE SQ SCH (21:01)
[2021-01-26] MEDS: MEROPENEM 1 G in IV NORMAL SALINE 100 ML IV SCH ×3 (04:08→20:29)
[2021-01-26 04:51] VITALS: BP 160/70
--- NOTE | 2021-01-26 05:36 | NUR ---
Awake, alert and oriented x 3. no acute distress noted. in better spirits. Patient is comfortable on room air. Nur intact and draining yellow urine. Irrigation q6h completed urine is clear. right upper arm midline, patent and infused antibiotics, tolerated well. Denies any pain at the moment. Safety and fall precautions in place. Call light within reach. continue with plan of care
[2021-01-26] MEDS: PANTOPRAZOLE SODIUM 40 MG TABLET.DR PO SCH (06:02)
[2021-01-26] MEDS: BLOOD SUGAR DIAGNOSTIC 1 EACH STRIP VI SCH ×4 (06:23→22:24)
[2021-01-26 08:00] VITALS: BP 120/69
[2021-01-26] MEDS: GABAPENTIN 100 MG CAPSULE PO SCH ×3 (08:24→16:01)
[2021-01-26] MEDS: CLOPIDOGREL 75 MG TABLET PO SCH (08:24)
[2021-01-26] MEDS: VENLAFAXINE XR 75 MG TAB.ER.24H PO SCH (08:24)
[2021-01-26] MEDS: CHOLECALCIFEROL 1,000 UNIT TABLET PO SCH (08:24)
[2021-01-26] MEDS: SENNOSIDES 1 TABLET PO SCH ×2 (08:24→16:01)
[2021-01-26] MEDS: FINASTERIDE 5 MG TABLET PO SCH (08:24)
[2021-01-26] MEDS: ASPIRIN 81 MG TAB.CHEW PO SCH (08:24)
[2021-01-26] MEDS: GLUCERNA SHAKE VANILLA 237 ML CAN PO SCH ×3 (08:25→17:00)
[2021-01-26] MEDS: MEGESTROL ACETATE 400 MG/10 ML LIQUID UDC PO SCH (08:25)
[2021-01-26] MEDS: INSULIN REGULAR, HUMAN 300 UNIT/3 ML VIAL SQ PRN ×3 (08:27→17:21)
[2021-01-26] MEDS: Z GUARD REMEDY PASTE 57 GM TUBE TOP PRN (08:28)
[2021-01-26] MEDS: CLOTRIMAZOLE 1% CREAM 30 GM TUBE TOP SCH ×2 (08:30→16:01)
[2021-01-26] MEDS: NUTRISOURCE FIBER 4 GM PACKET PO SCH ×2 (08:32→17:00)
--- NOTE | 2021-01-26 11:28 | NUR ---
Pt displayed poor motivation for rehab therapy and ADLs this am. With much encouragement, pt safely assisted to WC with physical therapist and occupational therapist, participating in therapy off unit. Dr Salomon at bedside this am, full report given, new orders in place. Due medications given per order with no a/r noted. Encouraged pt to eat breakfast, 50% noted, pt refused Glucerna and fiber supplement. Pt stated he wanted his snack, peanuts, ate snack after breakfast. Wound care administered per order. Heels offloaded, frequent repositioning. Nur catheter in place, draining yellow urine. R UA midline patent and intact. Safety measures, fall precautions, aspiration precautions maintained. Call light and belongings within reach.
[2021-01-26 16:21] VITALS: BP 126/64
--- NOTE | 2021-01-26 16:31 | NUR ---
Nur catheter discontinued per order at 1415. [place] care provided, clotrimin cream and Z-Guard applied per order. Monitor for void. Addendum: 01/26/21 at 1841 by ROCIO MUJICA RN RN Discontinued at 1615
--- NOTE | 2021-01-26 18:42 | NUR ---
Pt finishing dinner, eating snack brought by daughter Moriah. PO intake improved for dinner. Daughter Moriah updated regarding nursing care. Pt repositioned, hygiene care provided with CAR SALES ASSOCIATE, no void noted at this time. Will endorse to material handler 2nd shift nurse for continuity of care.
[2021-01-26 20:24] VITALS: BP 147/63
[2021-01-26] MEDS: ATORVASTATIN 40 MG TABLET PO SCH (22:18)
[2021-01-26] MEDS: TAMSULOSIN HCL 0.4 MG CAP.SR.24H PO SCH (22:18)
--- NOTE | 2021-01-26 22:20 | NUR ---
Awake, alert and oriented x 3. no acute distress noted. Patient is comfortable on room air. right upper arm midline, patent and infused antibiotics, tolerated well. Denies any pain at the moment. No voids yet, will continue to monitor. Safety and fall precautions in place. Call light within reach. continue with plan of care
[2021-01-26] MEDS: INSULIN GLARGINE,HUM 300 UNITS/3 ML CARTRIDGE SQ SCH (22:22)
[2021-01-26] MEDS: INSULIN REGULAR, HUMAN 300 UNITS/3 ML VIAL SQ PRN (22:23)
--- NOTE | 2021-01-27 02:00 | NUR ---
No voids yet. Bladder scan completed, [address] Cutler, new order to place Nur back in. Nur placed, tolerated well 350 out, yellow urine, no blood clots noted. No distress at this time. Pt resting. Continue with plan of care.
[2021-01-27] MEDS: MEROPENEM 1 G in IV NORMAL SALINE 100 ML IV SCH ×3 (03:56→20:38)
[2021-01-27 04:36] VITALS: BP 116/72
[2021-01-27 06:39] LABS: BASOPHILS # (AUTO) 0.1 K/uL (0.0-8.0); BASOPHILS % (AUTO) 0.7 % (0.0-2.0); EOSINOPHILS # (AUTO) 0.4 K/uL (0.0-0.7); EOSINOPHILS % (AUTO) 3.6 % (0.0-7.0); HEMATOCRIT 31.8 % (36.7-47.1); HEMOGLOBIN 10.8 g/dL (12.5-16.3); LYMPHOCYTES % (AUTO) 19.4 % (20.5-51.5); MEAN CORPUSCULAR HGB CONC 34 g/dL (32.5-36.3); MEAN CORPUSCULAR VOLUME 82.4 fL (73.0-96.2); MONOCYTES # (AUTO) 0.6 K/uL (2.0-10.0); MONOCYTES % (AUTO) 6.3 % (0.0-11.0); NEUTROPHILS # (AUTO) 7.2 K/uL (1.8-8.9); PLATELET COUNT (AUTO) 423 K/uL (152-348); RED BLOOD CELL COUNT(AUTO) 3.86 MIL/uL (4.06-5.63); WHITE BLOOD COUNT (AUTO) 10.3 K/uL (3.6-10.2)
[2021-01-27] MEDS: PANTOPRAZOLE SODIUM 40 MG TABLET.DR PO SCH (06:42)
[2021-01-27] MEDS: BLOOD SUGAR DIAGNOSTIC 1 EACH STRIP VI SCH ×4 (06:42→20:42)
[2021-01-27 06:56] LABS: CREATININE 0.9 mg/dL (0.6-1.3); POTASSIUM 4.2 mmol/L (3.5-5.1)
[2021-01-27 08:08] VITALS: BP 166/63
[2021-01-27] MEDS: INSULIN REGULAR, HUMAN 300 UNIT/3 ML VIAL SQ PRN ×2 (08:29→12:01)
[2021-01-27] MEDS: CHOLECALCIFEROL 1,000 UNIT TABLET PO SCH (08:30)
[2021-01-27] MEDS: VENLAFAXINE XR 75 MG TAB.ER.24H PO SCH (08:30)
[2021-01-27] MEDS: SENNOSIDES 1 TABLET PO SCH ×2 (08:30→17:37)
[2021-01-27] MEDS: ASPIRIN 81 MG TAB.CHEW PO SCH (08:30)
[2021-01-27] MEDS: GABAPENTIN 100 MG CAPSULE PO SCH ×3 (08:31→17:37)
[2021-01-27] MEDS: CLOPIDOGREL 75 MG TABLET PO SCH (08:31)
[2021-01-27] MEDS: FINASTERIDE 5 MG TABLET PO SCH (08:31)
[2021-01-27] MEDS: CLOTRIMAZOLE 1% CREAM 30 GM TUBE TOP SCH ×2 (08:31→17:38)
[2021-01-27] MEDS: MEGESTROL ACETATE 400 MG/10 ML LIQUID UDC PO SCH (08:32)
[2021-01-27] MEDS: GLUCERNA SHAKE VANILLA 237 ML CAN PO SCH ×2 (08:33→17:00)
[2021-01-27] MEDS: NUTRISOURCE FIBER 4 GM PACKET PO SCH ×2 (08:33→17:00)
--- NOTE | 2021-01-27 09:40 | NUR ---
Pt displayed increased motivation for activities today, participating in physical therapy at this time. Pt safely assisted OOB to WC, no distress noted. Pt noted with 50% PO intake for breakfast. Due medications given per order, pt tolerated well, no a/r noted. SAVANNA midline patent and intact. Nur Catheter in place, draining april/yellow urine. Safety measures, fall precautions, aspiration precautions maintained. Continue Rehab plan of care.
[2021-01-27 11:56] VITALS: BP 136/62
--- NOTE | 2021-01-27 12:08 | NUR ---
WOUND CARE CONSULT: PT SEEN FOR SKIN REASSESSMENT OF RT LATERAL ANKLE SCAR/DISCOLORATION WHICH WAS NOTED TO BE PRESENT ON ADMISSION. PT NOW STATES THAT RT LATERAL ANKLE AREA IS TENDER. DPM CONSULT CALLED TO DR FERRO. RASH IS IMPROVING TO GROIN AND PERINAL AREAS. RECOMMENDATIONS MADE FOR SKIN PROTECTION DISCUSSED WITH NURSING STAFF. MD IN AGREEMENT WITH PLAN OF CARE. Addendum: 01/27/21 at 1210 by ZOILA HUSSEIN RN Amended: Links added.
--- NOTE | 2021-01-27 14:49 | NUR ---
Dr. Salomon at bedside this afternoon. Full report given, new orders in place. Will carry out.
--- NOTE | 2021-01-27 16:57 | NUR ---
Dr. Hernandez at bedside this afternoon, examined pt, new orders in place.
[2021-01-27] MEDS: INSULIN REGULAR, HUMAN 300 UNIT/3 ML VIAL SQ SCH (17:40)
--- NOTE | 2021-01-27 18:37 | NUR ---
Pt in no acute distress, finished with dinner, 75% PO intake noted. Due medications given per order, no a/r noted. Wound care administered per order. Heels offloaded. Specialty air mattress in place per order. Pt noted with Dr. Umm mckinnon aware, per MD: "that is normal for him". Nur catheter intact and patent, some sediment noted in Nur tube, aware. Call light and belongings within reach. Will endorse to anesthesia technician nurse for continuity of care.
[2021-01-27 20:00] VITALS: BP 138/64
[2021-01-27] MEDS: ATORVASTATIN 40 MG TABLET PO SCH (20:35)
[2021-01-27] MEDS: TAMSULOSIN HCL 0.4 MG CAP.SR.24H PO SCH (20:35)
[2021-01-27] MEDS ORDERED: INSULIN GLARGINE,HUM 300 UNITS/3 ML CARTRIDGE SQ SCH (21:00)
--- NOTE | 2021-01-28 02:54 | NUR ---
Awake alert and oriented x2-3 VSS On ABT given as scheduled. Tolerated well. No ill effects noted. Nur catheter intact draining yellow urine. I & O monitor. Needs attended. Kept comfortable. Will monitor patient.
[2021-01-28] MEDS: MEROPENEM 1 G in IV NORMAL SALINE 100 ML IV SCH ×3 (04:13→20:20)
[2021-01-28 05:50] VITALS: BP 127/60
[2021-01-28] MEDS: PANTOPRAZOLE SODIUM 40 MG TABLET.DR PO SCH (06:19)
[2021-01-28] MEDS: BLOOD SUGAR DIAGNOSTIC 1 EACH STRIP VI SCH ×4 (06:33→20:32)
[2021-01-28 07:39] VITALS: BP 161/71
[2021-01-28] MEDS: INSULIN REGULAR, HUMAN 300 UNIT/3 ML VIAL SQ SCH ×3 (08:13→17:47)
[2021-01-28] MEDS: GABAPENTIN 100 MG CAPSULE PO SCH ×3 (08:14→17:39)
[2021-01-28] MEDS: MEGESTROL ACETATE 400 MG/10 ML LIQUID UDC PO SCH (08:14)
[2021-01-28] MEDS: NUTRISOURCE FIBER 4 GM PACKET PO SCH ×2 (08:14→17:00)
[2021-01-28] MEDS: ASPIRIN 81 MG TAB.CHEW PO SCH (08:14)
[2021-01-28] MEDS: VENLAFAXINE XR 75 MG TAB.ER.24H PO SCH (08:14)
[2021-01-28] MEDS: GLUCERNA SHAKE VANILLA 237 ML CAN PO SCH ×2 (08:14→17:00)
[2021-01-28] MEDS: FINASTERIDE 5 MG TABLET PO SCH (08:15)
[2021-01-28] MEDS: CLOPIDOGREL 75 MG TABLET PO SCH (08:15)
[2021-01-28] MEDS: SENNOSIDES 1 TABLET PO SCH ×2 (08:15→17:39)
[2021-01-28] MEDS: CHOLECALCIFEROL 1,000 UNIT TABLET PO SCH (08:15)
[2021-01-28] MEDS: CLOTRIMAZOLE 1% CREAM 30 GM TUBE TOP SCH ×3 (09:41→17:48)
[2021-01-28 11:30] VITALS: BP 119/72
--- NOTE | 2021-01-28 14:07 | NUR ---
INTERDISCIPLINARY TEAM CONFERENCE
[2021-01-28 14:54] VITALS: BP 117/57
--- NOTE | 2021-01-28 18:22 | NUR ---
Pt resting in bed, 50% PO intake noted. Pt ate snack of nuts. Due medications given per order, no a/r noted. Wound care administered per order. Heel protectors in place, heels and buttocks offloaded, frequent repositioning provided. Nur catheter intact, draining april/yellow urine. SAVANNA midline patent and intact. Pt displayed increased motivation for therapeutic activities today. Full report given to Dr. Umm JACOB, new orders in place, will carry out. Dr. Salomon aware of ankle x-ray and duplex arterial results. Call light and belongings within reach. Will endorse to electronics system mechanic nurse for continuity of care.
[2021-01-28 20:15] VITALS: BP 140/60
[2021-01-28] MEDS: TAMSULOSIN HCL 0.4 MG CAP.SR.24H PO SCH (20:21)
[2021-01-28] MEDS: ATORVASTATIN 40 MG TABLET PO SCH (20:21)
[2021-01-28] MEDS: INSULIN GLARGINE,HUM 300 UNITS/3 ML CARTRIDGE SQ SCH (20:31)
--- NOTE | 2021-01-29 01:58 | NUR ---
Condition unchanged. IV ABT given as scheduled. Tolerated well. No ill effects noted. VSS. Will monitor patient. Needs attended. Nur catheter intact draining yellow urine. I & O monitor. Repositioned. Kept comfortable. No acute distress noted.
[2021-01-29 04:20] VITALS: BP 147/65
[2021-01-29] MEDS: MEROPENEM 1 G in IV NORMAL SALINE 100 ML IV SCH ×3 (04:45→20:18)
[2021-01-29] MEDS: PANTOPRAZOLE SODIUM 40 MG TABLET.DR PO SCH (06:12)
[2021-01-29] MEDS: BLOOD SUGAR DIAGNOSTIC 1 EACH STRIP VI SCH ×4 (06:31→20:25)
[2021-01-29 06:51] LABS: BASOPHILS # (AUTO) 0.1 K/uL (0.0-8.0); BASOPHILS % (AUTO) 0.5 % (0.0-2.0); EOSINOPHILS # (AUTO) 0.3 K/uL (0.0-0.7); EOSINOPHILS % (AUTO) 2.4 % (0.0-7.0); HEMATOCRIT 35.2 % (36.7-47.1); HEMOGLOBIN 11.7 g/dL (12.5-16.3); LYMPHOCYTES # (AUTO) 2.1 K/uL (20.0-40.0); LYMPHOCYTES % (AUTO) 16.1 % (20.5-51.5); MEAN CORPUSCULAR HEMOGLOBIN 27.6 uug (23.8-33.4); MEAN CORPUSCULAR HGB CONC 33 g/dL (32.5-36.3); MEAN CORPUSCULAR VOLUME 82.7 fL (73.0-96.2); MONOCYTES # (AUTO) 0.6 K/uL (2.0-10.0); MONOCYTES % (AUTO) 4.9 % (0.0-11.0); NEUTROPHILS % (AUTO) 76.1 % (38.5-71.5); PLATELET COUNT (AUTO) 435 K/uL (152-348); RED BLOOD CELL COUNT(AUTO) 4.25 MIL/uL (4.06-5.63); WHITE BLOOD COUNT (AUTO) 13.2 K/uL (3.6-10.2)
[2021-01-29 07:00] LABS: CREATININE 0.9 mg/dL (0.6-1.3); POTASSIUM 4.4 mmol/L (3.5-5.1)
--- NOTE | 2021-01-29 08:00 | NUR ---
Patient received in bed with eyes open, alert and oriented x1-2 and has periods of confusion. Contact and fall precautions are in place. Patient is on RA with no shortness of breath or difficulty breathing. Patient has a right upper arm midline patent with no redness or swelling. Nur catheter is in place with clear yellow urine. Patient states his right ankle makes him uncomfortable and assisted him to move it to a position of comfort. Patient refused any pain medications. Patient state she has no other discomforts at this time. Call clark and personal belongings within easy reach. Will continue to monitor.
[2021-01-29 08:06] VITALS: BP 132/61
[2021-01-29] MEDS: ASPIRIN 81 MG TAB.CHEW PO SCH (08:07)
[2021-01-29] MEDS: CLOPIDOGREL 75 MG TABLET PO SCH (08:07)
[2021-01-29] MEDS: VENLAFAXINE XR 75 MG TAB.ER.24H PO SCH (08:07)
[2021-01-29] MEDS: SENNOSIDES 1 TABLET PO SCH ×2 (08:07→16:13)
[2021-01-29] MEDS: CHOLECALCIFEROL 1,000 UNIT TABLET PO SCH (08:07)
[2021-01-29] MEDS: GABAPENTIN 100 MG CAPSULE PO SCH ×3 (08:07→16:13)
[2021-01-29] MEDS: MEGESTROL ACETATE 400 MG/10 ML LIQUID UDC PO SCH (08:08)
[2021-01-29] MEDS: INSULIN REGULAR, HUMAN 300 UNIT/3 ML VIAL SQ SCH ×3 (08:11→17:04)
[2021-01-29] MEDS: CLOTRIMAZOLE 1% CREAM 30 GM TUBE TOP SCH ×3 (08:12→16:06)
[2021-01-29] MEDS: GLUCERNA SHAKE VANILLA 237 ML CAN PO SCH ×2 (08:15→16:06)
[2021-01-29] MEDS: NUTRISOURCE FIBER 4 GM PACKET PO SCH ×2 (08:18→16:06)
[2021-01-29] MEDS: FINASTERIDE 5 MG TABLET PO SCH (08:18)
[2021-01-29 14:42] VITALS: BP 119/50
[2021-01-29 20:10] VITALS: BP 133/53
[2021-01-29] MEDS: ATORVASTATIN 40 MG TABLET PO SCH (20:18)
[2021-01-29] MEDS: TAMSULOSIN HCL 0.4 MG CAP.SR.24H PO SCH (20:18)
[2021-01-29] MEDS: INSULIN GLARGINE,HUM 300 UNITS/3 ML CARTRIDGE SQ SCH (20:27)
[2021-01-30 04:10] VITALS: BP 133/80
[2021-01-30] MEDS: MEROPENEM 1 G in IV NORMAL SALINE 100 ML IV SCH ×3 (04:23→20:54)
[2021-01-30] MEDS: PANTOPRAZOLE SODIUM 40 MG TABLET.DR PO SCH (06:07)
[2021-01-30] MEDS: BLOOD SUGAR DIAGNOSTIC 1 EACH STRIP VI SCH ×4 (06:12→20:33)
[2021-01-30 07:45] VITALS: BP 162/77
[2021-01-30] MEDS: INSULIN REGULAR, HUMAN 300 UNIT/3 ML VIAL SQ SCH ×3 (07:47→17:09)
[2021-01-30] MEDS: HYDROCODONE/APAP 5-325MG TABLET PO PRN (07:50)
[2021-01-30] MEDS: MEGESTROL ACETATE 400 MG/10 ML LIQUID UDC PO SCH (07:59)
[2021-01-30] MEDS: GLUCERNA SHAKE VANILLA 237 ML CAN PO SCH ×2 (07:59→16:15)
[2021-01-30] MEDS: NUTRISOURCE FIBER 4 GM PACKET PO SCH ×2 (07:59→16:14)
[2021-01-30] MEDS: ASPIRIN 81 MG TAB.CHEW PO SCH (08:00)
[2021-01-30] MEDS: SENNOSIDES 1 TABLET PO SCH ×2 (08:00→16:14)
[2021-01-30] MEDS: FINASTERIDE 5 MG TABLET PO SCH (08:00)
[2021-01-30] MEDS: CHOLECALCIFEROL 1,000 UNIT TABLET PO SCH (08:00)
[2021-01-30] MEDS: CLOPIDOGREL 75 MG TABLET PO SCH (08:00)
[2021-01-30] MEDS: VENLAFAXINE XR 75 MG TAB.ER.24H PO SCH (08:00)
[2021-01-30] MEDS: GABAPENTIN 100 MG CAPSULE PO SCH ×3 (08:00→16:14)
[2021-01-30] MEDS: CLOTRIMAZOLE 1% CREAM 30 GM TUBE TOP SCH ×3 (08:00→16:14)
[2021-01-30 15:39] VITALS: BP 130/82
--- NOTE | 2021-01-30 16:15 | NUR ---
dc folly catheter per md orders
[2021-01-30 20:45] VITALS: BP 123/53
[2021-01-30] MEDS: ATORVASTATIN 40 MG TABLET PO SCH (20:55)
[2021-01-30] MEDS: TAMSULOSIN HCL 0.4 MG CAP.SR.24H PO SCH (20:55)
[2021-01-30] MEDS: INSULIN GLARGINE,HUM 300 UNITS/3 ML CARTRIDGE SQ SCH (21:41)
[2021-01-31 04:00] VITALS: BP 133/65
[2021-01-31] MEDS: MEROPENEM 1 G in IV NORMAL SALINE 100 ML IV SCH ×3 (04:03→20:08)
--- NOTE | 2021-01-31 05:30 | NUR ---
Starting of shift received patient awake alert and oriented x2-3 VSS On Antibiotic as scheduled , All due medication administered as ordered Tolerated well No adverse reaction noted s/p F/C removal at AM shift patient B&B incontinent strict I & O monitor. Needs attended. Kept comfortable. Safety measures taken all time. Will monitor patient.
[2021-01-31 05:45] LABS: BASOPHILS # (AUTO) 0.1 K/uL (0.0-8.0); BASOPHILS % (AUTO) 0.6 % (0.0-2.0); EOSINOPHILS # (AUTO) 0.4 K/uL (0.0-0.7); EOSINOPHILS % (AUTO) 2.8 % (0.0-7.0); HEMATOCRIT 32.3 % (36.7-47.1); HEMOGLOBIN 10.7 g/dL (12.5-16.3); LYMPHOCYTES # (AUTO) 2.4 K/uL (20.0-40.0); LYMPHOCYTES % (AUTO) 15.6 % (20.5-51.5); MEAN CORPUSCULAR HEMOGLOBIN 27.2 uug (23.8-33.4); MEAN CORPUSCULAR HGB CONC 33 g/dL (32.5-36.3); MEAN CORPUSCULAR VOLUME 82.4 fL (73.0-96.2); MONOCYTES % (AUTO) 6.7 % (0.0-11.0); NEUTROPHILS # (AUTO) 11.5 K/uL (1.8-8.9); NEUTROPHILS % (AUTO) 74.3 % (38.5-71.5); PLATELET COUNT (AUTO) 360 K/uL (152-348); RED BLOOD CELL COUNT(AUTO) 3.93 MIL/uL (4.06-5.63); WHITE BLOOD COUNT (AUTO) 15.5 K/uL (3.6-10.2)
[2021-01-31 05:56] LABS: CREATININE 0.8 mg/dL (0.6-1.3); POTASSIUM 4.4 mmol/L (3.5-5.1)
[2021-01-31] MEDS: PANTOPRAZOLE SODIUM 40 MG TABLET.DR PO SCH (06:45)
[2021-01-31] MEDS: BLOOD SUGAR DIAGNOSTIC 1 EACH STRIP VI SCH ×4 (06:50→20:14)
--- NOTE | 2021-01-31 07:35 | NUR ---
Patient AAO resting in bed am medication administered as ordered po. tolerated well. S/p f/ removal. patient did not void. Bladder scan done noted. 549 ml urine in bladder called Umm MC called notified accordingly. With order to do straight cath in and out. endorsed AM shift nurse to carry out order and follow up. AM RN agreed.
--- NOTE | 2021-01-31 08:01 | NUR ---
Received patient in bed, alert and verbally responsive, denies of any pain. Doctor Caroln order for in and out straight catheterization and monitor. Output is 700cc slight orange in color no blood clot noted. Notified Dr. Salomon. Pateint no s/s of distress. Call light within reach.
[2021-01-31] MEDS: FINASTERIDE 5 MG TABLET PO SCH (08:34)
[2021-01-31] MEDS: CLOPIDOGREL 75 MG TABLET PO SCH (08:34)
[2021-01-31] MEDS: INSULIN REGULAR, HUMAN 300 UNIT/3 ML VIAL SQ SCH ×3 (08:34→17:39)
[2021-01-31] MEDS: ASPIRIN 81 MG TAB.CHEW PO SCH (08:34)
[2021-01-31] MEDS: GABAPENTIN 100 MG CAPSULE PO SCH ×3 (08:34→16:56)
[2021-01-31] MEDS: CHOLECALCIFEROL 1,000 UNIT TABLET PO SCH (08:34)
[2021-01-31] MEDS: CLOTRIMAZOLE 1% CREAM 30 GM TUBE TOP SCH ×3 (08:35→16:56)
[2021-01-31] MEDS: MEGESTROL ACETATE 400 MG/10 ML LIQUID UDC PO SCH (08:36)
[2021-01-31] MEDS: GLUCERNA SHAKE VANILLA 237 ML CAN PO SCH ×2 (08:36→17:37)
[2021-01-31] MEDS: NUTRISOURCE FIBER 4 GM PACKET PO SCH ×2 (08:36→17:37)
[2021-01-31] MEDS: VENLAFAXINE XR 75 MG TAB.ER.24H PO SCH (08:40)
[2021-01-31] MEDS: SENNOSIDES 1 TABLET PO SCH ×2 (08:40→16:56)
[2021-01-31 11:32] VITALS: BP 120/59
--- NOTE | 2021-01-31 13:30 | NUR ---
AT 1100, seen by Dr. Cook and order for bladder scan after lunch. Bladder scan result is [address] Salomon notified and awaiting for orders. All due meds given as ordered. Will continue to monitor.
--- NOTE | 2021-01-31 14:30 | NUR ---
Per doctor Joyce, to check the bladder before dinner if greater than 500 post void bladder scan do in and out catheterization . Patient is comfortably sleeping right now SAVANNA midline intact denies of any pain no s/s of distress.
[2021-01-31 15:33] VITALS: BP 128/64
--- NOTE | 2021-01-31 16:45 | NUR ---
Bladder scan done before dinner, result is 633. Urine output via in and out catheterization is 500cc. Urine sample also given to the lab. Notified Dr. Cook and Dr. Salomon , awaiting for any order. Will continue to monitor. Contact isolation rendered. Turning and repositioning rendered every 2 hours. Call light within reach.
[2021-01-31 17:38] LABS: *BILIRUBIN,URIN NEGATIVE (NEGATIVE); *BLOOD, URINE NEGATIVE (NEGATIVE); *COLOR,URINE YELLOW (YELLOW); *KETONES,URINE NEGATIVE (NEGATIVE); *UROBILINOGEN,URINE 0.2 E.U./dl (NORMAL); LEUKOCYTE ESTERASE ,URINE TRACE (NEGATIVE); NITRITE, URINE NEGATIVE (NEGATIVE); UGLUCOSE NEGATIVE (NEGATIVE)
[2021-01-31 17:57] LABS: *CLARITY,URINE HAZY (CLEAR); BACTERIA,URINE FEW /HPF (NONE SEEN); RBC,URINE 0-3 /HPF (0-3); SQUAMOUS EPITHELIAL CELL,UR FEW /HPF (NONE SEEN); WBC,URINE 20-50 /HPF (0-3); YEAST,URINE MODERATE /HPF (NONE SEEN)
[2021-01-31 20:10] VITALS: BP 137/65
[2021-01-31] MEDS: ATORVASTATIN 40 MG TABLET PO SCH (20:14)
[2021-01-31] MEDS: TAMSULOSIN HCL 0.4 MG CAP.SR.24H PO SCH (20:14)
[2021-01-31] MEDS: INSULIN GLARGINE,HUM 300 UNITS/3 ML CARTRIDGE SQ SCH (21:00)
--- NOTE | 2021-01-31 21:17 | NUR ---
Received pt resting in bed. AAO x2-3. No acute distress noted. Denies pain/ discomfort. Due meds given as ordered. Right upper arm midline, patent and intact. Safety measures maintained. Call light and personal items within reach. Will continue to monitor.
[2021-02-01] MEDS: MEROPENEM 1 G in IV NORMAL SALINE 100 ML IV SCH ×3 (03:49→19:53)
[2021-02-01 04:40] VITALS: BP 137/58
--- NOTE | 2021-02-01 05:51 | NUR ---
Pt retained urine, bladder scan shows 747mL. Straight cath done with 850mL output.
[2021-02-01 06:08] LABS: BASOPHILS # (AUTO) 0.1 K/uL (0.0-8.0); BASOPHILS % (AUTO) 0.6 % (0.0-2.0); EOSINOPHILS # (AUTO) 0.3 K/uL (0.0-0.7); EOSINOPHILS % (AUTO) 2.6 % (0.0-7.0); HEMATOCRIT 32.5 % (36.7-47.1); HEMOGLOBIN 11.1 g/dL (12.5-16.3); LYMPHOCYTES # (AUTO) 2.3 K/uL (20.0-40.0); LYMPHOCYTES % (AUTO) 17.1 % (20.5-51.5); MEAN CORPUSCULAR HGB CONC 34 g/dL (32.5-36.3); MEAN CORPUSCULAR VOLUME 81.7 fL (73.0-96.2); MONOCYTES # (AUTO) 0.8 K/uL (2.0-10.0); NEUTROPHILS # (AUTO) 9.7 K/uL (1.8-8.9); NEUTROPHILS % (AUTO) 73.7 % (38.5-71.5); PLATELET COUNT (AUTO) 381 K/uL (152-348); RED BLOOD CELL COUNT(AUTO) 3.97 MIL/uL (4.06-5.63); WHITE BLOOD COUNT (AUTO) 13.2 K/uL (3.6-10.2)
[2021-02-01 06:18] LABS: BILIRUBIN,TOTAL 0.3 mg/dL (0.2-1.0); CREATININE 0.9 mg/dL (0.6-1.3); MAGNESIUM 2.1 mg/dL (1.8-2.4); PHOSPHOROUS 2.7 mg/dL (2.5-4.9); POTASSIUM 4.4 mmol/L (3.5-5.1); TOTAL PROTEIN, SERUM 6.3 g/dL (6.4-8.2)
[2021-02-01] MEDS: PANTOPRAZOLE SODIUM 40 MG TABLET.DR PO SCH (06:24)
[2021-02-01] MEDS: BLOOD SUGAR DIAGNOSTIC 1 EACH STRIP VI SCH ×4 (06:30→21:10)
[2021-02-01] MEDS: FINASTERIDE 5 MG TABLET PO SCH (08:40)
[2021-02-01] MEDS: CHOLECALCIFEROL 1,000 UNIT TABLET PO SCH (08:40)
[2021-02-01] MEDS: GABAPENTIN 100 MG CAPSULE PO SCH ×3 (08:40→16:48)
[2021-02-01] MEDS: ASPIRIN 81 MG TAB.CHEW PO SCH (08:40)
[2021-02-01] MEDS: SENNOSIDES 1 TABLET PO SCH ×2 (08:40→16:48)
[2021-02-01] MEDS: MEGESTROL ACETATE 400 MG/10 ML LIQUID UDC PO SCH (08:40)
[2021-02-01] MEDS: VENLAFAXINE XR 75 MG TAB.ER.24H PO SCH (08:40)
[2021-02-01] MEDS: CLOPIDOGREL 75 MG TABLET PO SCH (08:40)
[2021-02-01] MEDS: CLOTRIMAZOLE 1% CREAM 30 GM TUBE TOP SCH ×3 (08:41→16:48)
[2021-02-01] MEDS: NUTRISOURCE FIBER 4 GM PACKET PO SCH ×2 (08:42→17:10)
[2021-02-01] MEDS: GLUCERNA SHAKE VANILLA 237 ML CAN PO SCH ×2 (08:42→17:10)
[2021-02-01] MEDS: INSULIN REGULAR, HUMAN 300 UNIT/3 ML VIAL SQ SCH ×3 (08:53→18:12)
[2021-02-01 10:34] VITALS: BP 133/54
[2021-02-01 16:22] VITALS: BP 140/65
--- NOTE | 2021-02-01 18:30 | NUR ---
Informed Dr. Ramesh Cook regarding bladder scan result of 569ml and per MD he ordered to do in and out catheterization. In and out catheterization done aseptically and patient was able to tolerate and drained 800ml of clear yellow urine at 1745. Patient denies any pain or discomfort at this time. Assisted with his needs. Turned and repositioned every 2 hours. Call light and frequently used items placed within patient's reach. Received a call from Dr. Salomon and given MD update with no new order at this time.
--- NOTE | 2021-02-01 19:30 | NUR ---
Report received. Patient AAO, able to make needs known. Turned and repositioned. Skin care done. Patient cooperative.
[2021-02-01 20:29] VITALS: BP 114/66
[2021-02-01] MEDS: ATORVASTATIN 40 MG TABLET PO SCH (21:10)
[2021-02-01] MEDS: INSULIN GLARGINE,HUM 300 UNITS/3 ML CARTRIDGE SQ SCH (21:10)
[2021-02-01] MEDS: TAMSULOSIN HCL 0.4 MG CAP.SR.24H PO SCH (21:10)
--- NOTE | 2021-02-01 22:15 | NUR ---
Wound care treatment done to R ankle area; no drainage noted. New Mepilex dressing applied. Bladder scan done; 200ml.
[2021-02-01] MEDS: IV NORMAL SALINE 250 ML IV PRN (22:28)
[2021-02-02] MEDS: MEROPENEM 1 G in IV NORMAL SALINE 100 ML IV SCH ×3 (04:16→20:22)
[2021-02-02 04:22] VITALS: BP 156/75
--- NOTE | 2021-02-02 05:57 | NUR ---
Bladder scan result 867 cc. Straight cath done with 1,000 cc drainage of clear yellow colored urine. Tolerated well.
[2021-02-02 06:37] LABS: BASOPHILS # (AUTO) 0.1 K/uL (0.0-8.0); BASOPHILS % (AUTO) 0.8 % (0.0-2.0); EOSINOPHILS # (AUTO) 0.2 K/uL (0.0-0.7); EOSINOPHILS % (AUTO) 2.1 % (0.0-7.0); HEMATOCRIT 31.2 % (36.7-47.1); HEMOGLOBIN 10.7 g/dL (12.5-16.3); LYMPHOCYTES # (AUTO) 2.4 K/uL (20.0-40.0); LYMPHOCYTES % (AUTO) 23.6 % (20.5-51.5); MEAN CORPUSCULAR HEMOGLOBIN 28.2 uug (23.8-33.4); MEAN CORPUSCULAR HGB CONC 34 g/dL (32.5-36.3); MEAN CORPUSCULAR VOLUME 82.1 fL (73.0-96.2); MONOCYTES # (AUTO) 0.8 K/uL (2.0-10.0); MONOCYTES % (AUTO) 7.3 % (0.0-11.0); NEUTROPHILS # (AUTO) 6.8 K/uL (1.8-8.9); NEUTROPHILS % (AUTO) 66.2 % (38.5-71.5); PLATELET COUNT (AUTO) 377 K/uL (152-348); WHITE BLOOD COUNT (AUTO) 10.3 K/uL (3.6-10.2)
[2021-02-02] MEDS: PANTOPRAZOLE SODIUM 40 MG TABLET.DR PO SCH (06:48)
[2021-02-02] MEDS: BLOOD SUGAR DIAGNOSTIC 1 EACH STRIP VI SCH ×4 (06:48→20:25)
[2021-02-02 06:58] LABS: CREATININE 0.9 mg/dL (0.6-1.3); POTASSIUM 4.3 mmol/L (3.5-5.1)
[2021-02-02] MEDS: MEGESTROL ACETATE 400 MG/10 ML LIQUID UDC PO SCH (08:12)
[2021-02-02] MEDS: SENNOSIDES 1 TABLET PO SCH ×2 (08:12→16:46)
[2021-02-02] MEDS: ASPIRIN 81 MG TAB.CHEW PO SCH (08:12)
[2021-02-02] MEDS: VENLAFAXINE XR 75 MG TAB.ER.24H PO SCH (08:12)
[2021-02-02] MEDS: GABAPENTIN 100 MG CAPSULE PO SCH ×3 (08:12→16:46)
[2021-02-02] MEDS: CLOPIDOGREL 75 MG TABLET PO SCH (08:12)
[2021-02-02] MEDS: CHOLECALCIFEROL 1,000 UNIT TABLET PO SCH (08:12)
[2021-02-02] MEDS: NUTRISOURCE FIBER 4 GM PACKET PO SCH ×2 (08:13→17:00)
[2021-02-02] MEDS: FINASTERIDE 5 MG TABLET PO SCH (08:13)
[2021-02-02] MEDS: GLUCERNA SHAKE VANILLA 237 ML CAN PO SCH ×2 (08:13→17:00)
[2021-02-02] MEDS: CLOTRIMAZOLE 1% CREAM 30 GM TUBE TOP SCH ×3 (08:13→16:47)
[2021-02-02] MEDS: INSULIN REGULAR, HUMAN 300 UNIT/3 ML VIAL SQ SCH ×3 (08:16→17:17)
[2021-02-02 08:27] VITALS: BP 164/65
[2021-02-02 14:32] VITALS: BP 140/60
--- NOTE | 2021-02-02 16:00 | NUR ---
Pt noted with no void, bladder scan showed [address] Salomon notified with new order for in and out catheter. Order carried out, 550 mL of yellow urine noted.
--- NOTE | 2021-02-02 18:57 | NUR ---
Pt resting in bed, 50% PO intake noted for dinner. Due medications given per order, no a/r noted. SAVANNA midline patent and intact. Wound care administered per order. Heel protectors in place, heels offloaded. No void noted, bladder scan displayed 224 mL. 2 BM noted. Pt participated in Rehab therapy. Safety ensured. Call light and belongings within reach. Will endorse to shift stacker nurse for continuity of care.
[2021-02-02 20:00] VITALS: BP 136/67
[2021-02-02] MEDS: ATORVASTATIN 40 MG TABLET PO SCH (20:22)
[2021-02-02] MEDS: TAMSULOSIN HCL 0.4 MG CAP.SR.24H PO SCH (20:22)
[2021-02-02] MEDS: INSULIN GLARGINE,HUM 300 UNITS/3 ML CARTRIDGE SQ SCH (20:27)
--- NOTE | 2021-02-03 01:30 | NUR ---
Received pt resting in bed. AAO x3-4. No acute distress noted. Denies pain/ discomfort. Due meds given as ordered. Right upper arm midline, patent and intact. Safety measures maintained. Call light and personal items within reach. No void, pt is retaining. Bladder scan completed noted with 850. Straight cath completed 950 out. Pt tolerated well. VSS. Will continue to monitor.
[2021-02-03 04:30] VITALS: BP 133/54
[2021-02-03] MEDS: MEROPENEM 1 G in IV NORMAL SALINE 100 ML IV SCH ×3 (04:46→20:50)
[2021-02-03] MEDS: PANTOPRAZOLE SODIUM 40 MG TABLET.DR PO SCH (06:02)
[2021-02-03] MEDS: BLOOD SUGAR DIAGNOSTIC 1 EACH STRIP VI SCH ×4 (06:05→20:59)
[2021-02-03 06:24] LABS: BASOPHILS # (AUTO) 0.1 K/uL (0.0-8.0); BASOPHILS % (AUTO) 0.7 % (0.0-2.0); EOSINOPHILS # (AUTO) 0.2 K/uL (0.0-0.7); EOSINOPHILS % (AUTO) 2.4 % (0.0-7.0); HEMATOCRIT 34.6 % (36.7-47.1); HEMOGLOBIN 11.5 g/dL (12.5-16.3); LYMPHOCYTES # (AUTO) 2.3 K/uL (20.0-40.0); MEAN CORPUSCULAR HEMOGLOBIN 27.5 uug (23.8-33.4); MEAN CORPUSCULAR HGB CONC 33 g/dL (32.5-36.3); MEAN CORPUSCULAR VOLUME 83.3 fL (73.0-96.2); MONOCYTES # (AUTO) 0.8 K/uL (2.0-10.0); MONOCYTES % (AUTO) 7.6 % (0.0-11.0); NEUTROPHILS # (AUTO) 6.7 K/uL (1.8-8.9); NEUTROPHILS % (AUTO) 66.3 % (38.5-71.5); PLATELET COUNT (AUTO) 411 K/uL (152-348); RED BLOOD CELL COUNT(AUTO) 4.16 MIL/uL (4.06-5.63); WHITE BLOOD COUNT (AUTO) 10.2 K/uL (3.6-10.2)
[2021-02-03 06:48] LABS: POTASSIUM 4.1 mmol/L (3.5-5.1)
[2021-02-03] MEDS: INSULIN REGULAR, HUMAN 300 UNIT/3 ML VIAL SQ SCH ×3 (07:37→17:04)
[2021-02-03 07:49] VITALS: BP 109/69
[2021-02-03] MEDS: ASPIRIN 81 MG TAB.CHEW PO SCH (08:07)
[2021-02-03] MEDS: VENLAFAXINE XR 75 MG TAB.ER.24H PO SCH (08:08)
[2021-02-03] MEDS: SENNOSIDES 1 TABLET PO SCH ×2 (08:08→16:40)
[2021-02-03] MEDS: CLOPIDOGREL 75 MG TABLET PO SCH (08:08)
[2021-02-03] MEDS: GABAPENTIN 100 MG CAPSULE PO SCH ×3 (08:08→16:40)
[2021-02-03] MEDS: MEGESTROL ACETATE 400 MG/10 ML LIQUID UDC PO SCH (08:08)
[2021-02-03] MEDS: CHOLECALCIFEROL 1,000 UNIT TABLET PO SCH (08:08)
[2021-02-03] MEDS: GLUCERNA SHAKE VANILLA 237 ML CAN PO SCH ×2 (08:09→16:41)
[2021-02-03] MEDS: NUTRISOURCE FIBER 4 GM PACKET PO SCH ×2 (08:09→16:41)
[2021-02-03] MEDS: CLOTRIMAZOLE 1% CREAM 30 GM TUBE TOP SCH ×3 (08:09→16:41)
[2021-02-03] MEDS: FINASTERIDE 5 MG TABLET PO SCH (08:12)
--- NOTE | 2021-02-03 14:51 | NUR ---
straight cath performed with out put of 1000ml
[2021-02-03 16:00] VITALS: BP 130/57
--- NOTE | 2021-02-03 18:55 | NUR ---
patient is in bed, awake, alert, turned repositioned every 2 hours while in bed, participated in PT, OT services, tolerated fairly, increased po intake noted, urine is yellow in color
[2021-02-03 20:15] VITALS: BP 150/58
[2021-02-03] MEDS: ATORVASTATIN 40 MG TABLET PO SCH (20:49)
[2021-02-03] MEDS: TAMSULOSIN HCL 0.4 MG CAP.SR.24H PO SCH (20:49)
[2021-02-03] MEDS: INSULIN GLARGINE,HUM 300 UNITS/3 ML CARTRIDGE SQ SCH (21:06)
--- NOTE | 2021-02-04 02:36 | NUR ---
Awake alert and oriented. VSS Needs attended. Patient on IV ABT given as scheduled. Tolerated well. No ill effects noted. Patient straight cath as needed, moderate amount of yellow urine noted. Repositioned for comfort. For possible discharge today.
[2021-02-04] MEDS: MEROPENEM 1 G in IV NORMAL SALINE 100 ML IV SCH ×2 (03:35→11:46)
[2021-02-04 05:15] VITALS: BP 119/77
[2021-02-04] MEDS: PANTOPRAZOLE SODIUM 40 MG TABLET.DR PO SCH (06:17)
[2021-02-04] MEDS: BLOOD SUGAR DIAGNOSTIC 1 EACH STRIP VI SCH ×2 (06:38→11:54)
[2021-02-04 06:43] LABS: BASOPHILS # (AUTO) 0.1 K/uL (0.0-8.0); BASOPHILS % (AUTO) 0.9 % (0.0-2.0); EOSINOPHILS # (AUTO) 0.2 K/uL (0.0-0.7); EOSINOPHILS % (AUTO) 2.1 % (0.0-7.0); HEMATOCRIT 35.9 % (36.7-47.1); HEMOGLOBIN 12.1 g/dL (12.5-16.3); LYMPHOCYTES # (AUTO) 2.5 K/uL (20.0-40.0); LYMPHOCYTES % (AUTO) 24.6 % (20.5-51.5); MEAN CORPUSCULAR HEMOGLOBIN 27.8 uug (23.8-33.4); MEAN CORPUSCULAR HGB CONC 34 g/dL (32.5-36.3); MEAN CORPUSCULAR VOLUME 82.5 fL (73.0-96.2); MONOCYTES # (AUTO) 0.9 K/uL (2.0-10.0); MONOCYTES % (AUTO) 8.5 % (0.0-11.0); NEUTROPHILS # (AUTO) 6.6 K/uL (1.8-8.9); NEUTROPHILS % (AUTO) 63.9 % (38.5-71.5); PLATELET COUNT (AUTO) 464 K/uL (152-348); RED BLOOD CELL COUNT(AUTO) 4.35 MIL/uL (4.06-5.63); WHITE BLOOD COUNT (AUTO) 10.3 K/uL (3.6-10.2)
[2021-02-04 06:55] LABS: POTASSIUM 3.9 mmol/L (3.5-5.1)
--- NOTE | 2021-02-04 06:55 | NUR ---
bladder scan @ 0500 787ml noted in the bladder. patient straight cath obtained 800 ccof yellow urine
[2021-02-04 08:00] VITALS: BP 114/62
[2021-02-04] MEDS: NUTRISOURCE FIBER 4 GM PACKET PO SCH (09:00)
[2021-02-04] MEDS: GLUCERNA SHAKE VANILLA 237 ML CAN PO SCH (09:00)
[2021-02-04] MEDS: ASPIRIN 81 MG TAB.CHEW PO SCH (09:01)
[2021-02-04] MEDS: INSULIN REGULAR, HUMAN 300 UNIT/3 ML VIAL SQ SCH ×2 (09:01→12:35)
[2021-02-04] MEDS: GABAPENTIN 100 MG CAPSULE PO SCH ×2 (09:02→12:39)
[2021-02-04] MEDS: MEGESTROL ACETATE 400 MG/10 ML LIQUID UDC PO SCH (09:02)
[2021-02-04] MEDS: CLOTRIMAZOLE 1% CREAM 30 GM TUBE TOP SCH ×2 (09:02→09:03)
[2021-02-04] MEDS: CHOLECALCIFEROL 1,000 UNIT TABLET PO SCH (09:02)
[2021-02-04] MEDS: SENNOSIDES 1 TABLET PO SCH (09:02)
[2021-02-04] MEDS: VENLAFAXINE XR 75 MG TAB.ER.24H PO SCH (09:02)
[2021-02-04] MEDS: FINASTERIDE 5 MG TABLET PO SCH (09:02)
[2021-02-04] MEDS: CLOPIDOGREL 75 MG TABLET PO SCH (09:02)
[2021-02-04 12:00] VITALS: BP 135/75
--- NOTE | 2021-02-04 12:29 | NUR ---
Bladder scan showed 805 mL. Straight catheter done, 1,000 mL yellow urine drained. Some sediment noted. aware.
--- NOTE | 2021-02-04 15:15 | NUR ---
Pt to be discharged home today with [facility] and DME from [email or web address]. Pt and family aware and willing. Pt alert, in no acute distress, VSS. All needs attended to. Due medications administered per order, no a/r noted. Wound care administered per order. Belongings and home medications accounted for. Discharge prescription information provided to pt. IV removed, catheter intact, no shearing noted.
--- NOTE | 2021-02-04 17:34 | NUR ---
DISCHARGE NOTE: Pt safely assisted to gurney with 2 [employer] employees. Report given, pt in stable condition. Patient safely assisted downstairs via gurney.
== END 2021-02-04 17:15 | disposition home health service (06) | DRG 947 ==
PROVIDERS: ADMIT Physical Medicine & Rehabilitation Pain Medicine; ATTEND Physical Medicine & Rehabilitation Pain Medicine
PROC: 05HB33Z Insertion of Infusion Device into Right Basilic Vein, Percutaneous Approach (ICD-10-PCS; principal; 2021-01-23)
DX: R53.1 Weakness (principal); I21.A1 Myocardial infarction type 2; R53.2 Functional quadriplegia; D68.59 Other primary thrombophilia; E46 Unspecified protein-calorie malnutrition; E87.1 Hypo-osmolality and hyponatremia; N17.9 Acute kidney failure, unspecified; F32.2 Major depressive disorder, single episode, severe without psychotic features; L97.319 Non-pressure chronic ulcer of right ankle with unspecified severity; N39.0 Urinary tract infection, site not specified; R62.7 Adult failure to thrive; I10 Essential (primary) hypertension; I34.1 Nonrheumatic mitral (valve) prolapse; K21.9 Gastro-esophageal reflux disease without esophagitis; N40.1 Benign prostatic hyperplasia with lower urinary tract symptoms; R33.8 Other retention of urine; Z86.73 Personal history of transient ischemic attack (TIA), and cerebral infarction without residual deficits; R11.0 Nausea; R10.30 Lower abdominal pain, unspecified; R06.6 Hiccough; S90.32XD Contusion of left foot, subsequent encounter; S90.01XD Contusion of right ankle, subsequent encounter; S90.521D Blister (nonthermal), right ankle, subsequent encounter; X58.XXXD Exposure to other specified factors, subsequent encounter; R19.7 Diarrhea, unspecified; D63.8 Anemia in other chronic diseases classified elsewhere; E11.42 Type 2 diabetes mellitus with diabetic polyneuropathy; E11.51 Type 2 diabetes mellitus with diabetic peripheral angiopathy without gangrene; B35.3 Tinea pedis; E86.1 Hypovolemia; I25.10 Atherosclerotic heart disease of native coronary artery without angina pectoris; I65.29 Occlusion and stenosis of unspecified carotid artery; Z83.3 Family history of diabetes mellitus; Z82.49 Family history of ischemic heart disease and other diseases of the circulatory system
CPT/HCPCS: 36415; 73610; 76770; 83550; 83735; 84100; 85025; 87040; 87077; 87086; A4217; A4663; C1758; J1815; J2185; J3490; J7040; J7050; J8999